=== PATIENT | male | born 1965 | race African-American/Black ===

== ENCOUNTER 2018-05-23 13:12 | Emergency (ER) | payer BC, OTHER ==
[~2018-05-23] VITALS: Ht 175.3 cm; Wt 127.0 kg
[2018-05-23] MEDS ORDERED: LIDOCAINE/EPI/TETRACAINE TOPICAL GEL 3 ML. TP ONE (15:00)
[2018-05-23] MEDS ORDERED: DIPHTH,PERTUSS(ACELL),TET TOX 0.5 ML DISP.SYRIN. VAX IM ONE (15:00)
[2018-05-23] MEDS ORDERED: LIDOCAINE WITH 8.4% SOD BICARB 3 ML DISP.SYRIN. INJ ONE (15:00)
[2018-05-23 15:01] VITALS: BP 136/76
[2018-05-23] MEDS ORDERED: HYDR-3164 PO (15:17)
--- NOTE | 2018-05-23 15:18 | PHYS DOC ---
Past Medical History Past Medical History: Hypertension, Renal Disease Past Surgical History: Other Additional Past Surgical Histo: RENAL STENTS Alcohol Use: None Drug Use: None Adult General Chief Complaint Chief Complaint: LACERATION/AVULSION HPI HPI Patient is a 52 year old male who presents with patient states he was on the driveway today and slipped on some ice. States he fell backward and hit the back of his head. Patient rates his pain a 3 out of 10. Review of Systems Review of Systems Constitutional: Denies fever or chills [] Eyes: Denies change in visual acuity, redness, or eye pain [] HENT: Denies nasal congestion or sore throat [] Respiratory: Denies cough or shortness of breath [] Cardiovascular: No additional information not addressed in HPI [] GI: Denies abdominal pain, nausea, vomiting, bloody stools or diarrhea [] : Denies dysuria or hematuria [] Musculoskeletal: Denies back pain or joint pain [] Integument: Scalp laceration. Denies rash or skin lesions [] Neurologic: Denies headache, focal weakness or sensory changes [] All other systems were reviewed and found to be within normal limits, except as documented in this note. Current Medications Current Medications Current Medications Medications (Trade) Dose Ordered Sig/Jeremiah Start Time Stop Time Status Last Admin Dose Admin Diphtheria/ Tetanus/Acell Pertussis (Boostrix) 0.5 ml ONCE ONCE 05/23/18 15:00 05/23/18 16:07 DC 05/23/18 15:00 0.5 ML Lidocaine/ Epinephrine (Let Topical) 6 ml 1X ONCE 05/23/18 15:00 05/23/18 16:07 DC 05/23/18 15:00 6 ML Lidocaine/Sodium Bicarbonate (Buffered Lidocaine 1%) 9 ml 1X ONCE 05/23/18 15:00 05/23/18 16:07 DC 05/23/18 15:00 9 ML Allergies Allergies Allergies Coded Allergies Type Severity Reaction Last Updated Verified cortisone Allergy Unknown 05/23/18 Yes Physical Exam Physical Exam Constitutional: Well developed, well nourished, no acute distress, non-toxic appearance. [] HENT: Normocephalic, atraumatic, bilateral external ears normal, oropharynx moist, no oral exudates, nose normal. [] Eyes: PERRLA, EOMI, conjunctiva normal, no discharge. [] Neck: Normal range of motion, no tenderness, supple, no stridor. [] Cardiovascular:Heart rate regular rhythm, no murmur [] Lungs & Thorax: Bilateral breath sounds clear to auscultation [] Abdomen: Bowel sounds normal, soft, no tenderness, no masses, no pulsatile masses. [] Skin: Scalp laceration. Warm, dry, no erythema, no rash. [] Back: No tenderness, no CVA tenderness. [] Extremities: No tenderness, no cyanosis, no clubbing, ROM intact, no edema. [] Neurologic: Alert and oriented X 3, normal motor function, normal sensory function, no focal deficits noted. [] Psychologic: Affect normal, judgement normal, mood normal. [] Current Patient Data Vital Signs Vital Signs Date Time Temp Pulse Resp B/P (MAP) Pulse Ox O2 Delivery O2 Flow Rate FiO2 05/23/18 15:01 97.3 79 20 136/76 (96) 98 Room Air 97.3 EKG EKG [] Radiology/Procedures Radiology/Procedures [] Impressions: [facility] [address] [place] [address] IMAGING REPORT Signed PATIENT: CAROLYNE BOYLE ACCOUNT: [id number] : 1965 LOCATION: ER AGE: 52 SEX: M EXAM STATUS: REG ER ORD. PHYSICIAN: DAGOBERTO MCCAULEY APRN REASON: fall PROCEDURE: CT HEAD AND MAXILLOFACIAL WO CT HEAD AND MAXILLOFACIAL WO, CT CERVICAL SPINE WO CONTRAST dated 05/23/2018 4:04 PM Indication: Pain after injury. PainSLIPPED ON ICE, LACERATION TO POSTERIOR HEAD, recent fall Comparison: No comparison is available. Technique: Contiguous axial imaging the head was performed from skull base to vertex. In addition, axial imaging of the maxillofacial bones and cervical spine acquired with thin cut coronal and sagittal reconstruction. One or more of the following individualized dose reduction techniques were utilized for this examination: 1. Automated exposure control 2. Adjustment of the mA and/or kV according to patient size 3. Use of iterative reconstruction technique Findings: Ventricles and sulci are within normal limits for age. No midline shift or mass effect. Brain parenchyma is of normal attenuation. No hemorrhage or extra-axial collection. Posterior fossa and brainstem unremarkable. There is focal scalp soft tissue swelling and scalp laceration posteriorly near the vertex. Underlying calvarium is intact. Paranasal sinuses and mastoid air cells are clear. Images of the maxillofacial bones show no evidence of displaced facial fracture. Orbital jorgensen and maxillary jorgensen are intact. Zygomatic arches are intact. The mandible is intact. No evidence of nasal bone fracture. Posterior medial units and infundibula are patent. Bilateral mastoid air cells are clear. No significant soft tissue abnormality. Images of the cervical spine were acquired skull base to T1. Sagittal alignment is anatomic. Vertebral body heights are maintained. No prevertebral soft tissue swelling. Posterior elements are intact. No apparent fracture. Mild hypertrophic change of the superior and inferior endplates throughout. Multilevel uncovertebral spurring and facet arthropathy. There is resultant severe right foraminal stenosis at the C5-C6 level with mild to moderate foraminal narrowing at C3-C4 and C4-C5 on the right. No apparent central canal compromise. IMPRESSION HEAD: 1. No evidence of acute intracranial hemorrhage or mass. 2. Prominent posterior scalp hematoma/laceration near the vertex with no evidence of underlying fracture. IMPRESSION MAXILLOFACIAL: 1. No evidence of displaced facial fracture. IMPRESSION CERVICAL SPINE: 1. No evidence of fracture or malalignment. 2. Mild to moderate multilevel spondylosis. Electronically signed by: Krish Fagan MD (05/23/2018 4:28 PM) [facility] [place] DICTATED and SIGNED BY: KRISH FAGAN MD DATE: 05/23/18 1623 Course & Med Decision Making Course & Med Decision Making Patient is a 52 year old male who presents with patient states he was on the driveway today and slipped on some ice. States he fell backward and hit the back of his head. Patient rates his pain a 3 out of 10. Patient denies LOC, nausea, vomiting, headache but states his right jaw is hurting. This happened at 12 PM today. Bleeding is controlled. Patient has a 5 cm laceration to the back of his scalp. Patient has range of motion can open and close his jaw and speak in full clear sentences. Her and oriented. Patient Has no bony tenderness to his face, C-spine, thoracic spine, lumbar spine. He has full range of motion of his neck. PERRLA. No focal weaknesses. Stable and ambulatory with a steady gait. CT scans show no acute findings. Patient is given a Boostrix shot. Patient is to follow-up here in 7-10 days for staple removal. Patient should follow up sooner for any signs of infection. Patient is given prescription for pain medications. Laceration Repair by me: Anesthesia: 1% lidocaine locally Location: Back of head scalp Tendon/Joint/Nerves: No injury Foreign body: None detected after copious irrigation and exploration Technique: 8 Simple Interrupted hanna Complexity: No subcutaneous sutures/mucosal repair/edge excision Post Closure Length: 5 cm Patient's bleeding was easily controlled in the department and there is no indication of anemia. No evidence of compartment syndrome, neurologic injury, vascular injury, open joint, tendon laceration, or foreign body. Patient is appropriate for outpatient follow up. 48 hour wound check. Scar minimization instructions given. Dragon Disclaimer Dragon Disclaimer This electronic medical record was generated, in whole or in part, using a voice recognition dictation system. Departure Departure Impression: Primary Impression: Laceration Additional Impression: Fall Disposition: 01 HOME, SELF-CARE Condition: STABLE Referrals: RADHA HOWARD DO (PCP) Patient Instructions: Laceration Care, Adult Additional Instructions: Keep laceration clean and dry. Follow up with Primary care or here in the ED in 10 days for staple removal. Return for vomiting, dizziness, intense head pain, loss of consciousness, visual changes. Scripts Orphenadrine Citrate (ORPHENADRINE CITRATE) 100 Mg Tablet.er 1 TAB PO BID, #20 TAB Prov: DAGOBERTO MCCAULEY APRN 05/23/18 Ibuprofen (IBUPROFEN) 600 Mg Tablet 600 MG PO PRN Q6HRS PRN for INFLAMMATION, #20 TAB Prov: DAGOBERTO MCCAULEY APRN 05/23/18 Hydrocodone/Apap 5-325 (NORCO 5-325 TABLET) 1 Each Tablet 1 TAB PO PRN Q6HRS PRN for PAIN, #10 TAB 0 Refills Prov: DAGOBERTO MCCAULEY APRN 05/23/18 Problem Qualifiers Additional Impression: Fall Encounter type: initial encounter Qualified Codes: W19.XXXA - Unspecified fall, initial encounter DAGOBERTO MCCAULEY APRN May 23, 2018 15:18
--- NOTE | 2018-05-23 16:33 | RAD ---
CT HEAD AND MAXILLOFACIAL WO, CT CERVICAL SPINE WO CONTRAST dated 05/23/2018 4:04 PM Indication: Pain after injury. PainSLIPPED ON ICE, LACERATION TO POSTERIOR HEAD, recent fall Comparison: No comparison is available. Technique: Contiguous axial imaging the head was performed from skull base to vertex. In addition, axial imaging of the maxillofacial bones and cervical spine acquired with thin cut coronal and sagittal reconstruction. One or more of the following individualized dose reduction techniques were utilized for this examination: 1. Automated exposure control 2. Adjustment of the mA and/or kV according to patient size 3. Use of iterative reconstruction technique Findings: Ventricles and sulci are within normal limits for age. No midline shift or mass effect. Brain parenchyma is of normal attenuation. No hemorrhage or extra-axial collection. Posterior fossa and brainstem unremarkable. There is focal scalp soft tissue swelling and scalp laceration posteriorly near the vertex. Underlying calvarium is intact. Paranasal sinuses and mastoid air cells are clear. Images of the maxillofacial bones show no evidence of displaced facial fracture. Orbital jorgensen and maxillary jorgensen are intact. Zygomatic arches are intact. The mandible is intact. No evidence of nasal bone fracture. Posterior medial units and infundibula are patent. Bilateral mastoid air cells are clear. No significant soft tissue abnormality. Images of the cervical spine were acquired skull base to T1. Sagittal alignment is anatomic. Vertebral body heights are maintained. No prevertebral soft tissue swelling. Posterior elements are intact. No apparent fracture. Mild hypertrophic change of the superior and inferior endplates throughout. Multilevel uncovertebral spurring and facet arthropathy. There is resultant severe right foraminal stenosis at the C5-C6 level with mild to moderate foraminal narrowing at C3-C4 and C4-C5 on the right. No apparent central canal compromise. IMPRESSION HEAD: 1. No evidence of acute intracranial hemorrhage or mass. 2. Prominent posterior scalp hematoma/laceration near the vertex with no evidence of underlying fracture. IMPRESSION MAXILLOFACIAL: 1. No evidence of displaced facial fracture. IMPRESSION CERVICAL SPINE: 1. No evidence of fracture or malalignment. 2. Mild to moderate multilevel spondylosis. Electronically signed by: Krish Fagan MD (05/23/2018 4:28 PM) [facility] [place]
[2018-05-23] MEDS ORDERED: IBUP-1007 PO (17:11)
[2018-05-23] MEDS ORDERED: ORPH100T PO (17:11)
== END 2018-05-23 17:18 | disposition home or self-care (01) ==
LOC: ER 13:12
DX: S01.01XA Laceration without foreign body of scalp, initial encounter (principal); I10 Essential (primary) hypertension; Z88.8 Allergy status to other drugs, medicaments and biological substances; W00.0XXA Fall on same level due to ice and snow, initial encounter; Y93.89 Activity, other specified; Y92.89 Other specified places as the place of occurrence of the external cause; Y99.8 Other external cause status
CPT/HCPCS: 12002; 70450; 70486; 72125; 90471; 90715; 99284

== ENCOUNTER 2018-06-02 11:29 | Emergency (ER) | payer BC ==
[~2018-06-02] VITALS: Ht 177.8 cm; Wt 129.3 kg
[~2018-06-02 11:29] MED LIST: HYDR-3164 PO; IBUP-1007 PO; ORPH100T PO
[2018-06-02 11:46] VITALS: BP 136/75
[2018-06-02] MEDS ORDERED: LIDOCAINE 1% PF 2 ML VIAL. INJ ONE (12:00)
--- NOTE | 2018-06-02 12:18 | PHYS DOC ---
Past Medical History Past Medical History: Hypertension, Kidney Stone Past Surgical History: Other Additional Past Surgical Histo: RENAL STENTS,CYSTOSCOPY Alcohol Use: None Drug Use: None Adult General Chief Complaint Chief Complaint: SUTURE/STAPLE REMOVAL HPI HPI Patient is a 52 year old [f__sex] who presents with [] Review of Systems Review of Systems Constitutional: Denies fever or chills [] Eyes: Denies change in visual acuity, redness, or eye pain [] HENT: Denies nasal congestion or sore throat [] Respiratory: Denies cough or shortness of breath [] Cardiovascular: No additional information not addressed in HPI [] GI: Denies abdominal pain, nausea, vomiting, bloody stools or diarrhea [] : Denies dysuria or hematuria [] Musculoskeletal: Denies back pain or joint pain [] Integument: Denies rash or skin lesions [] Neurologic: Denies headache, focal weakness or sensory changes [] Endocrine: Denies polyuria or polydipsia [] All other systems were reviewed and found to be within normal limits, except as documented in this note. Current Medications Current Medications Current Medications Medications (Trade) Dose Ordered Sig/Jeremiah Start Time Stop Time Status Last Admin Dose Admin Lidocaine HCl (Xylocaine-Mpf 1% 2ml Vial) 4 ml 1X ONCE 06/02/18 12:00 06/02/18 12:01 DC Allergies Allergies Allergies Coded Allergies Type Severity Reaction Last Updated Verified cortisone Allergy Unknown 05/23/18 Yes Physical Exam Physical Exam Constitutional: Well developed, well nourished, no acute distress, non-toxic appearance. [] HENT: Normocephalic, atraumatic, bilateral external ears normal, oropharynx moist, no oral exudates, nose normal. [] Eyes: PERRLA, EOMI, conjunctiva normal, no discharge. [] Neck: Normal range of motion, no tenderness, supple, no stridor. [] Cardiovascular:Heart rate regular rhythm, no murmur [] Lungs & Thorax: Bilateral breath sounds clear to auscultation [] Abdomen: Bowel sounds normal, soft, no tenderness, no masses, no pulsatile masses. [] Skin: Warm, dry, no erythema, no rash. [] Back: No tenderness, no CVA tenderness. [] Extremities: No tenderness, no cyanosis, no clubbing, ROM intact, no edema. [] Neurologic: Alert and oriented X 3, normal motor function, normal sensory function, no focal deficits noted. [] Psychologic: Affect normal, judgement normal, mood normal. [] Current Patient Data Vital Signs Vital Signs Date Time Temp Pulse Resp B/P (MAP) Pulse Ox O2 Delivery O2 Flow Rate FiO2 06/02/18 11:46 98.0 76 20 136/75 (95) 97 Room Air 98.0 EKG EKG [] Radiology/Procedures Radiology/Procedures [] Course & Med Decision Making Course & Med Decision Making Pertinent Labs and Imaging studies reviewed. (See chart for details) [] Dragon Disclaimer Dragon Disclaimer This electronic medical record was generated, in whole or in part, using a voice recognition dictation system. Departure Departure Impression: Primary Impression: Encounter for removal of hanna Disposition: 01 HOME, SELF-CARE Condition: STABLE Referrals: RADHA HOWARD DO (PCP) Patient Instructions: Staple Removal, Care After Additional Instructions: Tylenol or ibuprofen as needed for pain. Follow the wound care instructions provided. Follow-up with your primary care doctor as needed, return to the ER for symptoms worsen. LASHON RUSSO APRN Jun 02, 2018 12:18
== END 2018-06-02 12:45 | disposition home or self-care (01) ==
LOC: ER 11:29
DX: S41.111D Laceration without foreign body of right upper arm, subsequent encounter (principal); I10 Essential (primary) hypertension; Z87.442 Personal history of urinary calculi; Z88.8 Allergy status to other drugs, medicaments and biological substances; X58.XXXD Exposure to other specified factors, subsequent encounter
CPT/HCPCS: 99284

== ENCOUNTER 2019-03-01 11:23 | Inpatient (IN) | payer BC ==
[~2019-03-01] VITALS: Ht 175.3 cm; Wt 134.0 kg
--- NOTE | 2019-03-01 12:42 | PHYS DOC ---
Past Medical History Past Medical History: Arthritis, Hypertension, Kidney Stone Past Surgical History: Other Additional Past Surgical Histo: RENAL STENTS,CYSTOSCOPY Alcohol Use: None Drug Use: None Adult General Chief Complaint Chief Complaint: OTHER COMPLAINTS HPI HPI Patient is a 53 year old male who presents with back pain that radiates down his left leg had been ongoing for month, and then he went to the chiropractor this past Friday and physical therapy on Friday and since that time he says he's been having bilateral sensation changes below his waist. He states that he has sensation changes around his private area. He denies any pain at this time. However he says he stands up he has severe pain. He says he can feel stuff below the waist however does feels like he is at the dentist and has been numbed. Denies any previous back surgeries. His been taking anti-inflammatories and Flexeril at home. He states that he was trying to have sexual intercourse last night was unable to get an erection due to the sensory changes. Review of Systems Review of Systems Constitutional: Denies fever or chills [] Eyes: Denies change in visual acuity, redness, or eye pain [] HENT: Denies nasal congestion or sore throat [] Respiratory: Denies cough or shortness of breath [] Cardiovascular: No additional information not addressed in HPI [] GI: Denies abdominal pain, nausea, vomiting, bloody stools or diarrhea [] : Denies dysuria or hematuria [] Musculoskeletal: Denies back pain or joint pain [] Integument: Denies rash or skin lesions [] Neurologic: Denies headache, Reports sensory changes bilaterally below the waist. Endocrine: Denies polyuria or polydipsia [] Complete systems were reviewed and found to be within normal limits, except as documented in this note. Current Medications Current Medications Current Medications Medications (Trade) Dose Ordered Sig/Jeremiah Start Time Stop Time Status Last Admin Dose Admin Gadoterate Meglumine (Dotarem) 26.8 ml 1X ONCE 03/01/19 15:45 03/01/19 15:46 DC 03/01/19 15:45 26.8 ML Allergies Allergies Allergies Coded Allergies Type Severity Reaction Last Updated Verified cortisone Allergy Unknown 05/23/18 Yes Physical Exam Physical Exam Constitutional: Well developed, well nourished, no acute distress, non-toxic appearance. [] HENT: Normocephalic, atraumatic, bilateral external ears normal, oropharynx moist, no oral exudates, nose normal. [] Eyes: PERRLA, EOMI, conjunctiva normal, no discharge. [] Neck: Normal range of motion, no tenderness, supple, no stridor. [] Cardiovascular:Heart rate regular rhythm, no murmur [] Lungs & Thorax: Bilateral breath sounds clear to auscultation [] Abdomen: Bowel sounds normal, soft, no tenderness, no masses, no pulsatile masses. [] Skin: Warm, dry, no erythema, no rash. [] Back: Spinal tenderness thoracic and lumbar. Extremities: No tenderness, no cyanosis, no clubbing, ROM intact, no edema. [] Neurologic: Alert and oriented X 3, normal motor function, reduced sensation bilateral legs. -babinski reflex, can dorsal and plantar flex, has reduced rectal tone, Has saddle anesthesia. Psychologic: Affect normal, judgement normal, mood normal. [] Current Patient Data Vital Signs Vital Signs Date Time Temp Pulse Resp B/P (MAP) Pulse Ox O2 Delivery O2 Flow Rate FiO2 03/01/19 15:05 72 18 116/70 (85) 95 Room Air 03/01/19 11:53 98.7 98.7 Lab Values Laboratory Tests Test 03/01/19 13:24 03/01/19 14:39 White Blood Count 8.6 x10^3/uL (4.0-11.0) Red Blood Count 4.93 x10^6/uL (4.30-5.70) Hemoglobin 13.7 g/dL (13.0-17.5) Hematocrit 41.8 % (39.0-53.0) Mean Corpuscular Volume 85 fL (79-100) Mean Corpuscular Hemoglobin 28 pg (25-35) Mean Corpuscular Hemoglobin Concent 33 g/dL (31-37) Red Cell Distribution Width 14.1 % (11.5-14.5) Platelet Count 317 x10^3/uL (140-400) Neutrophils (%) (Auto) 69 % (31-73) Lymphocytes (%) (Auto) 22 % (24-48) L Monocytes (%) (Auto) 7 % (0-9) Eosinophils (%) (Auto) 1 % (0-3) Basophils (%) (Auto) 1 % (0-3) Neutrophils # (Auto) 6.0 x10^3/uL (1.8-7.7) Lymphocytes # (Auto) 1.9 x10^3/uL (1.0-4.8) Monocytes # (Auto) 0.6 x10^3/uL (0.0-1.1) Eosinophils # (Auto) 0.1 x10^3/uL (0.0-0.7) Basophils # (Auto) 0.1 x10^3/uL (0.0-0.2) Erythrocyte Sedimentation Rate 29 (0-15) H Sodium Level 142 mmol/L (136-145) Potassium Level 4.6 mmol/L (3.5-5.1) Chloride Level 107 mmol/L (98-107) Carbon Dioxide Level 24 mmol/L (21-32) Anion Gap 11 (6-14) Blood Urea Nitrogen 30 mg/dL (8-26) H Creatinine 1.5 mg/dL (0.7-1.3) H Estimated GFR (Cockcroft-Gault) 59.7 BUN/Creatinine Ratio 20 (6-20) Glucose Level 93 mg/dL (70-99) Calcium Level 9.4 mg/dL (8.5-10.1) Total Bilirubin 0.4 mg/dL (0.2-1.0) Aspartate Amino Transferase (AST) 36 U/L (15-37) Alanine Aminotransferase (ALT) 43 U/L (16-63) Alkaline Phosphatase 76 U/L (46-116) Total Protein 8.1 g/dL (6.4-8.2) Albumin 3.7 g/dL (3.4-5.0) Albumin/Globulin Ratio 0.8 (1.0-1.7) L Urine Color Yellow Urine Clarity Clear Urine pH 5.5 Urine Specific [place] 1.025 Urine Protein Negative mg/dL (NEG-TRACE) Urine Glucose (UA) Negative mg/dL (NEG) Urine Ketones (Stick) Negative mg/dL (NEG) Urine Blood Negative (NEG) Urine Nitrite Negative (NEG) Urine Bilirubin Negative (NEG) Urine Urobilinogen Dipstick 0.2 mg/dL (0.2 mg/dL) Urine Leukocyte Esterase Small (NEG) Urine RBC 0 /HPF (0-2) Urine WBC 5-10 /HPF (0-4) Urine Squamous Epithelial Cells Occ /LPF Urine Bacteria 0 /HPF (0-FEW) Urine Mucus Mod /LPF Laboratory Tests 03/01/19 13:24 Laboratory Tests 03/01/19 13:24 EKG EKG [] Radiology/Procedures Radiology/Procedures [] Course & Med Decision Making Course & Med Decision Making Pertinent Labs and Imaging studies reviewed. (See chart for details) Discussed with Dr. Mcdonald. He suggest to go ahead and get emergent MRI to rule out Cauda Equina. Will also get labs. Discussed with Shanita with Neurosurgery who agrees with the emergent MRI. Labs are unremarkable. Discussed with Dr. Matthews who agrees to admission. MRI is pending will consult neurosurgery. Dragon Disclaimer Dragon Disclaimer This electronic medical record was generated, in whole or in part, using a voice recognition dictation system. Departure Departure Impression: Primary Impression: Back pain Additional Impressions: Paresthesia of both lower extremities Paresthesia of buttock Disposition: ADMITTED INPATIENT Admitting Physician: KENDRA Condition: STABLE Referrals: RADHA HOWARD DO (PCP) Problem Qualifiers Primary Impression: Back pain Chronicity: acute Back pain laterality: left Sciatica presence: with sciatica Sciatica laterality: bilateral sciatica CIELO CARTER APRN Mar 01, 2019 12:42
[2019-03-01 13:39] LABS: BASO # 0.1 x10^3/uL (0.0-0.2); BASO % 1 % (0-3); EOS # 0.1 x10^3/uL (0.0-0.7); EOS % 1 % (0-3); HEMATOCRIT 41.8 % (39.0-53.0); HEMOGLOBIN 13.7 g/dL (13.0-17.5); LYMPH # 1.9 x10^3/uL (1.0-4.8); LYMPH % 22 % (24-48); MEAN CORPUSCULAR HEMOGLOBIN 28 pg (25-35); MEAN CORPUSCULAR HGB CONC 33 g/dL (31-37); MEAN CORPUSCULAR VOLUME 85 fL (79-100); MONO # 0.6 x10^3/uL (0.0-1.1); MONO % 7 % (0-9); NEUT % 69 % (31-73); PLATELET COUNT 317 x10^3/uL (140-400); RED BLOOD COUNT 4.93 x10^6/uL (4.30-5.70); RED CELL DISTRIBUTION WIDTH 14.1 % (11.5-14.5); WHITE BLOOD COUNT 8.6 x10^3/uL (4.0-11.0)
[2019-03-01 13:48] LABS: CALCIUM 9.4 mg/dL (8.5-10.1); CREATININE 1.5 mg/dL (0.7-1.3); GFR 59.7; POTASSIUM 4.6 mmol/L (3.5-5.1)
[2019-03-01 13:54] LABS: ALBUMIN 3.7 g/dL (3.4-5.0); ALBUMIN/GLOBULIN RATIO 0.8 (1.0-1.7); TOTAL BILIRUBIN 0.4 mg/dL (0.2-1.0); TOTAL PROTEIN 8.1 g/dL (6.4-8.2)
[2019-03-01 14:46] LABS: BILIRUBIN,URINE NEGATIVE (NEG); CLARITY,URINE CLEAR; COLOR,URINE YELLOW; NITRITE,URINE NEGATIVE (NEG); PH,URINE 5.5; PROTEIN,URINE NEGATIVE (NEG-TRACE); UROBILINOGEN,URINE 0.2 mg/dL (0.2 mg/dL)
[2019-03-01 14:58] LABS: BACTERIA,URINE 0 /HPF (0-FEW); RBC,URINE 0 /HPF (0-2); SQUAMOUS EPITHELIAL CELL,UR OCC /LPF
[2019-03-01] MEDS ORDERED: GADOTERATE 7.5 MMOL/15ML VIAL. IVP ONE (15:45)
[2019-03-01] MEDS ORDERED: ONDANSETRON PF 4 MG/2 ML VIAL. IV PRN (17:15)
[2019-03-01] MEDS ORDERED: MORPHINE SULFATE 4 MG/ML VIAL. IV PRN (17:15)
--- NOTE | 2019-03-01 17:40 | RAD ---
MRI of the thoracic and lumbar spine without and with contrast 03/01/2019 CLINICAL HISTORY: Mid/lower back pain. Decreased rectal tone. Bilateral sensation changes. TECHNIQUE: Unenhanced T1-weighted and T2-weighted sagittal and axial and inversion recovery sagittal images of the thoracic and lumbar spine were obtained. After the intravenous administration of 27 cc of DOTAREM, enhanced T1-weighted sagittal and axial images of the thoracic and lumbar spine were obtained. FINDINGS: Some of the images are degraded by patient motion. Minimal S-shaped curvature of the thoracolumbar spine is seen. Degenerative signal changes are seen involving the disks of the mid and lower thoracic spine along with the L4-5 and L5-S1 discs. Degenerative signal changes are seen within the marrow surrounding these discs. The thoracic spinal cord is normal morphology, position, and signal characteristics. The conus medullaris is normal morphology, position, and signal characteristics. No area of abnormal contrast enhancement is seen. A 2.2 cm rounded high signal intensity lesion is seen involving the superior/midpole of the left kidney on the T2-weighted images. This likely represents a cyst. Degenerative changes are seen involving the thoracic disc spaces consisting of minimal generalized disc bulges and degenerative changes involving the facet joints. These findings do not result in significant central spinal canal or neural foraminal stenosis. The changes of degenerative disc disease are seen involving the mid and lower lumbar disc spaces. These consist of mild to moderate generalized disc bulges, degenerative changes involving the facet joints, small to moderate-sized facet joint effusions and mild to moderate ligamentum flavum hypertrophy. These findings result in mild to moderate central spinal canal stenosis at L4-5 and mild central spinal canal stenosis at L5-S1. Mild to moderate right neural foraminal stenosis is seen at L5-S1. IMPRESSION: 1. No area of signal abnormality, contrast enhancement or impingement is seen involving the thoracic spinal cord. 2. Degenerative changes are seen throughout the thoracic spine. These findings do not result in significant central spinal canal or neural foraminal stenosis. 3. The changes of degenerative disc disease are seen involving the mid and lower lumbar spine. These findings result in mild to moderate central spinal canal stenosis at L4-5 and mild central spinal canal stenosis at L5-S1. Mild to moderate right neural foraminal stenosis is seen at L5-S1. Electronically signed by: Dino Landon MD (03/01/2019 5:37 PM) [id number]
[2019-03-01 18:30] VITALS: BP 124/79
[2019-03-01] MEDS ORDERED: INDO75CA3 PO (19:54)
[2019-03-01] MEDS ORDERED: ALLO300T PO (19:54)
[2019-03-01] MEDS ORDERED: METO-269 PO (19:54)
[2019-03-01] MEDS ORDERED: LISI40TA2 PO (19:54)
[2019-03-01] MEDS ORDERED: METF500T11 PO (19:54)
[2019-03-01] MEDS ORDERED: LOSA100T14 PO (19:54)
[2019-03-01] MEDS ORDERED: POTA10TA17 PO (19:54)
[2019-03-01] MEDS ORDERED: HYDROcodone/APAP 5/325MG 1 TAB TABLET PO PRN (20:30)
[2019-03-01] MEDS ORDERED: IBUPROFEN 200 MG TABLET. PO PRN (20:45)
[2019-03-01] MEDS: CYCLOBENZAPRINE 10 MG TABLET. PO SCH (21:45)
[2019-03-01] MEDS: POTASSIUM CITRATE 10 MEQ TABLET.ER PO SCH (21:46)
[2019-03-01] MEDS: INDOMETHACIN 25 MG CAPSULE. PO SCH (21:48)
--- NOTE | 2019-03-01 22:33 | PDOC1 ---
History and Physical Date of Admission Date of Admission DATE: 03/01/19 TIME: 22:27 Source Source: Chart review, Patient History of Present Illness History of Present Illness Mr. Cuellar is a 53 year old male admit with leg and groin numbness that is new over days, He has had a lot of recent back pain, sciatica of the left, that radiates down his left leg had been ongoing for month, and then he went to the chiropractor this past Friday and physical therapy on Friday. In the past 2 days, he has now numbness started below the waist, he feels is started in the right foot and moved up and the left hip and moved down. he groin is now numb today. some back pain and left hip pain, mild at rest and severe when trying to stand. . Denies any previous back surgeries. His been taking anti-inflammatories and Flexeril at home. he works with [employer], Past Medical History Cardiovascular: HTN Social History Smoke: No ALCOHOL: none Current Problem List Problem List Problems Medical Problems: (1) Back pain Status: Acute (2) Paresthesia of both lower extremities Status: Acute (3) Paresthesia of buttock Status: Acute Current Medications Current Medications Current Medications Gadoterate Meglumine (Dotarem) 26.8 ml 1X ONCE IVP Last administered on 03/01/19at 15:45; Start 03/01/19 at 15:45; Stop 03/01/19 at 15:46; Status DC Ondansetron HCl (Zofran) 4 mg PRN Q8HRS PRN IV NAUSEA/VOMITING; Start 03/01/19 at 17:15; Stop 03/02/19 at 17:14 Morphine Sulfate (Morphine Sulfate) 4 mg PRN Q2HR PRN IV PAIN; Start 03/01/19 at 17:15; Stop 03/02/19 at 17:14 Allopurinol (Zyloprim) 300 mg DAILY PO ; Start 03/02/19 at 09:00 Acetaminophen/ Hydrocodone Bitart (Lortab 5/325) 1 tab PRN Q6HRS PRN PO PAIN; Start 03/01/19 at 20:30 Potassium Citrate (Urocit-K) 10 meq BID PO Last administered on 03/01/19at 21:46; Start 03/01/19 at 21:00 Ibuprofen (Motrin) 600 mg PRN Q6HRS PRN PO INFLAMMATION; Start 03/01/19 at 20:45 Indomethacin (Indocin) 75 mg BIDWMEALS PO Last administered on 03/01/19at 21:48; Start 03/01/19 at 21:00 Lisinopril (Prinivil) 40 mg DAILY PO ; Start 03/02/19 at 09:00 Losartan Potassium (Cozaar) 100 mg DAILY PO ; Start 03/02/19 at 09:00 Metoprolol Succinate (Toprol Xl) 50 mg DAILY PO ; Start 03/02/19 at 09:00 Cyclobenzaprine HCl (Flexeril) 10 mg BID PO Last administered on 03/01/19at 21:45; Start 03/01/19 at 21:00 Active Scripts Active Orphenadrine Citrate 100 Mg Tablet.er 1 Tab PO BID Ibuprofen 600 Mg Tablet 600 Mg PO PRN Q6HRS PRN [place] 5-325 Tablet (Acetaminophen/Hydrocodone Bitart) 1 Each Tablet 1 Tab PO PRN Q6HRS PRN Reported Toprol Xl (Metoprolol Succinate) 50 Mg Tab.er.24h 50 Mg PO DAILY Losartan Potassium 100 Mg Tablet 100 Mg PO DAILY Indomethacin 75 Mg Capsule.er 75 Mg PO BID Allopurinol 300 Mg Tablet 300 Mg PO DAILY Lisinopril 40 Mg Tablet 40 Mg PO DAILY Metformin Hcl Er (Metformin Hcl) 500 Mg Tab.er.24h 500 Mg PO BIDAC Potassium Citrate 10 Meq Tablet.er 10 Meq PO BID Allergies Allergies: Coded Allergies: cortisone (Verified Allergy, Unknown, 05/23/18) Physical Exam General: Alert, Oriented X3, Cooperative, No acute distress HEENT: Atraumatic, PERRLA, EOMI, Mucous membr. moist/pink Lungs: Clear to auscultation, Normal air movement Heart: S1S2, RRR, no gallops, no murmurs Abdomen: Normal bowel sounds, Soft Extremities: No clubbing, No edema, Normal pulses Skin: No rashes, No breakdown Neuro: Normal tone, Sensation intact, Cranial nerves 3-12 NL, Other Vitals Vitals Vital Signs Date Time Temp Pulse Resp B/P (MAP) Pulse Ox O2 Delivery O2 Flow Rate FiO2 03/01/19 18:30 97.3 82 20 124/79 (94) 93 Room Air 97.3 Labs Labs Laboratory Tests Test 03/01/19 13:24 03/01/19 14:39 White Blood Count 8.6 x10^3/uL (4.0-11.0) Red Blood Count 4.93 x10^6/uL (4.30-5.70) Hemoglobin 13.7 g/dL (13.0-17.5) Hematocrit 41.8 % (39.0-53.0) Mean Corpuscular Volume 85 fL (79-100) Mean Corpuscular Hemoglobin 28 pg (25-35) Mean Corpuscular Hemoglobin Concent 33 g/dL (31-37) Red Cell Distribution Width 14.1 % (11.5-14.5) Platelet Count 317 x10^3/uL (140-400) Neutrophils (%) (Auto) 69 % (31-73) Lymphocytes (%) (Auto) 22 % (24-48) Monocytes (%) (Auto) 7 % (0-9) Eosinophils (%) (Auto) 1 % (0-3) Basophils (%) (Auto) 1 % (0-3) Neutrophils # (Auto) 6.0 x10^3/uL (1.8-7.7) Lymphocytes # (Auto) 1.9 x10^3/uL (1.0-4.8) Monocytes # (Auto) 0.6 x10^3/uL (0.0-1.1) Eosinophils # (Auto) 0.1 x10^3/uL (0.0-0.7) Basophils # (Auto) 0.1 x10^3/uL (0.0-0.2) Erythrocyte Sedimentation Rate 29 (0-15) Sodium Level 142 mmol/L (136-145) Potassium Level 4.6 mmol/L (3.5-5.1) Chloride Level 107 mmol/L (98-107) Carbon Dioxide Level 24 mmol/L (21-32) Anion Gap 11 (6-14) Blood Urea Nitrogen 30 mg/dL (8-26) Creatinine 1.5 mg/dL (0.7-1.3) Estimated GFR (Cockcroft-Gault) 59.7 BUN/Creatinine Ratio 20 (6-20) Glucose Level 93 mg/dL (70-99) Calcium Level 9.4 mg/dL (8.5-10.1) Total Bilirubin 0.4 mg/dL (0.2-1.0) Aspartate Amino Transf (AST/SGOT) 36 U/L (15-37) Alanine Aminotransferase (ALT/SGPT) 43 U/L (16-63) Alkaline Phosphatase 76 U/L (46-116) Total Protein 8.1 g/dL (6.4-8.2) Albumin 3.7 g/dL (3.4-5.0) Albumin/Globulin Ratio 0.8 (1.0-1.7) Urine Color Yellow Urine Clarity Clear Urine pH 5.5 Urine Specific [place] 1.025 Urine Protein Negative mg/dL (NEG-TRACE) Urine Glucose (UA) Negative mg/dL (NEG) Urine Ketones (Stick) Negative mg/dL (NEG) Urine Blood Negative (NEG) Urine Nitrite Negative (NEG) Urine Bilirubin Negative (NEG) Urine Urobilinogen Dipstick 0.2 mg/dL (0.2 mg/dL) Urine Leukocyte Esterase Small (NEG) Urine RBC 0 /HPF (0-2) Urine WBC 5-10 /HPF (0-4) Urine Squamous Epithelial Cells Occ /LPF Urine Bacteria 0 /HPF (0-FEW) Urine Mucus Mod /LPF Laboratory Tests Test 03/01/19 13:24 03/01/19 14:39 White Blood Count 8.6 x10^3/uL (4.0-11.0) Red Blood Count 4.93 x10^6/uL (4.30-5.70) Hemoglobin 13.7 g/dL (13.0-17.5) Hematocrit 41.8 % (39.0-53.0) Mean Corpuscular Volume 85 fL (79-100) Mean Corpuscular Hemoglobin 28 pg (25-35) Mean Corpuscular Hemoglobin Concent 33 g/dL (31-37) Red Cell Distribution Width 14.1 % (11.5-14.5) Platelet Count 317 x10^3/uL (140-400) Neutrophils (%) (Auto) 69 % (31-73) Lymphocytes (%) (Auto) 22 % (24-48) Monocytes (%) (Auto) 7 % (0-9) Eosinophils (%) (Auto) 1 % (0-3) Basophils (%) (Auto) 1 % (0-3) Neutrophils # (Auto) 6.0 x10^3/uL (1.8-7.7) Lymphocytes # (Auto) 1.9 x10^3/uL (1.0-4.8) Monocytes # (Auto) 0.6 x10^3/uL (0.0-1.1) Eosinophils # (Auto) 0.1 x10^3/uL (0.0-0.7) Basophils # (Auto) 0.1 x10^3/uL (0.0-0.2) Erythrocyte Sedimentation Rate 29 (0-15) Sodium Level 142 mmol/L (136-145) Potassium Level 4.6 mmol/L (3.5-5.1) Chloride Level 107 mmol/L (98-107) Carbon Dioxide Level 24 mmol/L (21-32) Anion Gap 11 (6-14) Blood Urea Nitrogen 30 mg/dL (8-26) Creatinine 1.5 mg/dL (0.7-1.3) Estimated GFR (Cockcroft-Gault) 59.7 BUN/Creatinine Ratio 20 (6-20) Glucose Level 93 mg/dL (70-99) Calcium Level 9.4 mg/dL (8.5-10.1) Total Bilirubin 0.4 mg/dL (0.2-1.0) Aspartate Amino Transf (AST/SGOT) 36 U/L (15-37) Alanine Aminotransferase (ALT/SGPT) 43 U/L (16-63) Alkaline Phosphatase 76 U/L (46-116) Total Protein 8.1 g/dL (6.4-8.2) Albumin 3.7 g/dL (3.4-5.0) Albumin/Globulin Ratio 0.8 (1.0-1.7) Urine Color Yellow Urine Clarity Clear Urine pH 5.5 Urine Specific [place] 1.025 Urine Protein Negative mg/dL (NEG-TRACE) Urine Glucose (UA) Negative mg/dL (NEG) Urine Ketones (Stick) Negative mg/dL (NEG) Urine Blood Negative (NEG) Urine Nitrite Negative (NEG) Urine Bilirubin Negative (NEG) Urine Urobilinogen Dipstick 0.2 mg/dL (0.2 mg/dL) Urine Leukocyte Esterase Small (NEG) Urine RBC 0 /HPF (0-2) Urine WBC 5-10 /HPF (0-4) Urine Squamous Epithelial Cells Occ /LPF Urine Bacteria 0 /HPF (0-FEW) Urine Mucus Mod /LPF VTE Prophylaxis Ordered VTE Prophylaxis Devices: Yes VTE Pharmacological Prophylaxi: No Assessment/Plan Assessment/Plan back pain sciatica left numbness bilateral legs with new saddle anesthesia, STAT MRI done today, shows some narrowing, none critical, Neurosurg consulted, 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
[2019-03-01 22:45] VITALS: BP 117/76
[2019-03-01] MEDS ORDERED: IV NORMAL SALINE 1000ML BAG 1,000 ML IV ONE (22:45)
[2019-03-01] MEDS: LIDOCAINE (700MG/PATCH) PATCH. TD SCH (22:47)
--- NOTE | 2019-03-02 02:09 | NUR ---
Patient arrived to unit around 1830. and son at bedside. Patient states that he has 5/10 pain in his lower back. Also reports numbness and tingling from waist down. Patient states that he has had two falls in the past week since his feet are numb. VS stable, assessment complete. Bed in low, locked position, will continue to monitor.
[2019-03-02 03:45] VITALS: BP 99/58
[2019-03-02 07:00] VITALS: BP 133/70
[2019-03-02] MEDS: LIDOCAINE (700MG/PATCH) PATCH. TD SCH (09:00)
[2019-03-02] MEDS: CYCLOBENZAPRINE 10 MG TABLET. PO SCH ×2 (09:00→18:00)
[2019-03-02] MEDS ORDERED: methylPREDNISolone 4 MG TABLET. PO SCH ×2 (09:00→12:30)
[2019-03-02] MEDS: INDOMETHACIN 25 MG CAPSULE. PO SCH (09:44)
[2019-03-02] MEDS: LISINOPRIL 20 MG TABLET PO SCH (09:45)
[2019-03-02] MEDS: POTASSIUM CITRATE 10 MEQ TABLET.ER PO SCH ×2 (09:45→20:57)
[2019-03-02] MEDS: LOSARTAN POTASSIUM 50 MG TABLET. PO SCH (09:46)
[2019-03-02] MEDS: ALLOPURINOL 300 MG TABLET. PO SCH (09:46)
[2019-03-02] MEDS: METOPROLOL SUCC 24HR ER 50 MG TAB.ER.24H. PO SCH (09:46)
[2019-03-02 11:00] VITALS: BP 120/86
--- NOTE | 2019-03-02 12:33 | PDOC ---
Provider Note Provider Note Patient seen and examined c/o LE numbness and feelings of weakness with ambulation and some back pain has gained >60 lbs in the last few months exam: neuro intact except subjective decrease in sensation in bilateral lower extremities thoracic and lumbar MRI with degenerative arthritis and moderate epidural lipomatosis neurology following weight loss may be of benefit could dc from my standpoint call with questions ARSH BUSTOS MD Mar 02, 2019 12:33
--- NOTE | 2019-03-02 13:21 | NUR ---
SS following for discharge planning. SS reviewed pt chart. Pt is from home with spouse and is currently on room air. PT recommended home independent. SS will continue to follow for discharge planning.
--- NOTE | 2019-03-02 13:51 | PDOC ---
[employer]GRESS NOTE Chief Complaint Chief Complaint back pain sciatica left numbness bilateral legs with new saddle anesthesia, STAT MRI done today, shows some narrowing, none critical CKD 2-3, History of Present Illness History of Present Illness 03/02/2019 Pt was seen and examined. Pt reports that he is doing well today. Reports he is overflow on the cardiac floor and is here to see neurology. Reports numbness from the midthorax to the feet. Reports that he had a MRI yesterday. Denies any cardiac complaints and denies any cardiac health problems in the past. Vitals/I&O Vitals/I&O: Vital Signs Date Time Temp Pulse Resp B/P (MAP) Pulse Ox O2 Delivery O2 Flow Rate FiO2 03/02/19 11:00 97.5 82 18 120/86 (97) 96 Room Air 97.5 I & O 0 03/01/19 03/01/19 03/02/19 15:00 23:00 07:00 Intake Total 400 ml Output Total 300 ml Balance -300 ml 400 ml Physical Exam General: Alert, Oriented X3, Cooperative, No acute distress Heart: Regular rate Lungs: Clear Abdomen: Normal bowel sounds, Soft Extremities: No clubbing, No edema, Normal pulses Skin: No rashes, No breakdown Labs Labs: Laboratory Tests Test 03/01/19 14:39 03/02/19 11:30 Urine Color Yellow Urine Clarity Clear Urine pH 5.5 Urine Specific [place] 1.025 Urine Protein Negative mg/dL (NEG-TRACE) Urine Glucose (UA) Negative mg/dL (NEG) Urine Ketones (Stick) Negative mg/dL (NEG) Urine Blood Negative (NEG) Urine Nitrite Negative (NEG) Urine Bilirubin Negative (NEG) Urine Urobilinogen Dipstick 0.2 mg/dL (0.2 mg/dL) Urine Leukocyte Esterase Small (NEG) Urine RBC 0 /HPF (0-2) Urine WBC 5-10 /HPF (0-4) Urine Squamous Epithelial Cells Occ /LPF Urine Bacteria 0 /HPF (0-FEW) Urine Mucus Mod /LPF Creatine Kinase 355 U/L (39-308) Vitamin B12 Level 896 pg/mL (247-911) Thyroid Stimulating Hormone (TSH) 2.277 uIU/mL (0.358-3.74) Review of Systems Review of Systems: Denies CP Denies SOB Denies N/V/D Assessment and Plan Assessmemt and Plan Problems Medical Problems: (1) Back pain Status: Acute (2) CKD (chronic kidney disease) Status: Chronic (3) Numbness in both legs Status: Acute (4) Paresthesia of both lower extremities Status: Acute (5) Paresthesia of buttock Status: Acute (6) Sciatica, left side Status: Acute Lumbar MRI (03/01/2019) *IMPRESSION: 1. No area of signal abnormality, contrast enhancement or impingement is seen involving the thoracic spinal cord. 2. Degenerative changes are seen throughout the thoracic spine. These findings do not result in significant central spinal canal or neural foraminal stenosis. 3. The changes of degenerative disc disease are seen involving the mid and lower lumbar spine. These findings result in mild to moderate central spinal canal stenosis at L4-5 and mild central spinal canal stenosis at L5-S1. Mild to moderate right neural foraminal stenosis is seen at L5-S1. Thoracic MRI (03/01/2019) *IMPRESSION: 1. No area of signal abnormality, contrast enhancement or impingement is seen involving the thoracic spinal cord. 2. Degenerative changes are seen throughout the thoracic spine. These findings do not result in significant central spinal canal or neural foraminal stenosis. 3. The changes of degenerative disc disease are seen involving the mid and lower lumbar spine. These findings result in mild to moderate central spinal canal stenosis at L4-5 and mild central spinal canal stenosis at L5-S1. Mild to moderate right neural foraminal stenosis is seen at L5-S1. Assessment: back pain sciatica left numbness bilateral legs with new saddle anesthesia, STAT MRI done today, shows some narrowing, none critical CKD 2-3, Plan: 1) IVF 2) Await recommendations from neurology, neurosurgery, and PMNR 3) Cardiac monitoring 4) Continue muscle relaxers 5) Consider steroids if agreeable by neurosurgery 6) PT/OT 7) DVT prophylaxis Comment Review of Relevant I have reviewed the following items shilpa (where applicable) has been applied. Medications: Current Medications Medications (Trade) Dose Ordered Sig/Jeremiah Route PRN Reason Start Time Stop Time Status Last Admin Dose Admin Gadoterate Meglumine (Dotarem) 26.8 ml 1X ONCE IVP 03/01/19 15:45 03/01/19 15:46 DC 03/01/19 15:45 Allopurinol (Zyloprim) 300 mg DAILY PO 03/02/19 09:00 03/02/19 09:46 Potassium Citrate (Urocit-K) 10 meq BID PO 03/01/19 21:00 03/02/19 09:45 Indomethacin (Indocin) 75 mg BIDWMEALS PO 03/01/19 21:00 03/02/19 09:44 Lisinopril (Prinivil) 40 mg DAILY PO 03/02/19 09:00 03/02/19 09:45 Losartan Potassium (Cozaar) 100 mg DAILY PO 03/02/19 09:00 03/02/19 09:46 Metoprolol Succinate (Toprol Xl) 50 mg DAILY PO 03/02/19 09:00 03/02/19 09:46 Cyclobenzaprine HCl (Flexeril) 10 mg BID PO 03/01/19 21:00 03/01/19 21:45 Lidocaine (Lidoderm) 1 patch DAILY TD 03/01/19 22:45 03/01/19 22:47 Sodium Chloride 1,000 ml @ 100 mls/hr 1X ONCE IV 03/01/19 22:45 03/02/19 08:44 DC 03/01/19 22:48 KRISTINE ARITA III DO Mar 02, 2019 13:50
[2019-03-02] MEDS: IV NORMAL SALINE 1000ML BAG 1,000 ML IV SCH (14:58)
[2019-03-02 15:00] VITALS: BP 114/72
--- NOTE | 2019-03-02 15:59 | PDOC2 ---
NEUROLOGY CONSULT Date of Admission Date of Admission DATE: 03/02/19 TIME: 15:43 Reason for Consult Reason for Consult: IMPRESSION: Numbness and tingling below waist. Pain in LE, left LE > R. Back pain. HTN. L4-5 stenosis. Obesity. No evidence of acute myelitis this time. No objective sensory deficits level found on exam. RECOMMENDATIONS/PLAN: Neurontin 100 mg tid. Lab: see orders. Weight reduction. OT/PT. Consulted NS. T-spine MRI w/o acute findings. L-spine MRI: L4-5 stenosis but no nerve impingements. History of Present Illness This is a 53-year-old AA male patient who was admitted with complaints of leg and groin and LE numbness and tingling for about a week. He stated he had chronic lower back pain and left leg pain and he was thought to have sciatica. He stated then he had pain, numbness and tingling, and heaviness in his bilateral LE recently. No symptoms of urinary or bowel dysfunction. No symptoms of gait problems. His UE and cranial nerves are not affected. Past Medical History Cardiovascular: HTN Obesity. Kidney stone. PAST SURGERY HISTORY: RENAL STENTS,CYSTOSCOPY. Allergies Coded Allergies: Cortisone (Verified Allergy, Unknown, 05/23/18) MEDICATIONS: Refer to [facility] FAMILY HISTORY: Non contributory. SOCIAL HISTORY: Lives at home. Denies smoking, drinking, and illicit drug use. REVIEW OF SYSTEMS: Constitutional: Obese. Head: No recent traumatic brain or head injury. Skin: No edema, or rash. Ear: No infection. Eyes: No vision loss or color blindness. Nose: No bleeding or purulent discharges. Hearing: No hearing decrease. Neck: No injury. Cardiac: HTN. Pulmonary: No SOB. GI: No GI ulcer, GI bleeding. Urinary/genital: No dysuria, incontinence, urinary retention. Endocrinologic: obesity. Skeletomuscular: No muscular atrophy, deformity. Neurological: see HP. Psychiatric: Denies drug use/abuse. Otherwise, not [id number] review of systems. PHYSICAL EXAMINATION: General appearance is alert. HEENT: Normocephalic and nontraumatic. Eyes, nose, ears, and throat are unremarkable. Neck is supple. No lymphadenopathy. No bruits are heard over the carotid artery. No crepitus. Cardiovascular: S1, S2, regular rate and rhythm. Pulmonary: Clear to auscultation bilaterally. Abdomen: Bowel sounds are positive. Abdomen is soft, nontender, and nondistended. Extremities: No rash, lesions, or edema. No restriction of range of motion NEUROLOGICAL EXAMINATION: Alert Oriented to time, place and person. PERRL. EOMI. CN: no focal findings. Muscle tone: within normal. Muscle strength: 5 DTR: 2+, no decreased DTR in knees. Plantar reflex: Flexor response bilaterally Gait: At baseline normal. Sensory exam: no abnormal findings. No cerebellar signs elicited. F-T-N test accurate. Current Medications Current Medications Current Medications Gadoterate Meglumine (Dotarem) 26.8 ml 1X ONCE IVP Last administered on 03/01/19 15:45; Start 03/01/19 at 15:45; Stop 03/01/19 at 15:46; Status DC Ondansetron HCl (Zofran) 4 mg PRN Q8HRS PRN IV NAUSEA/VOMITING; Start 03/01/19 at 17:15; Stop 03/02/19 at 17:14 Morphine Sulfate (Morphine Sulfate) 4 mg PRN Q2HR PRN IV PAIN; Start 03/01/19 at 17:15; Stop 03/02/19 at 17:14 Allopurinol (Zyloprim) 300 mg DAILY PO Last administered on 03/02/19 09:46; Start 03/02/19 at 09:00 Acetaminophen/ Hydrocodone Bitart (Lortab 5/325) 1 tab PRN Q6HRS PRN PO PAIN; Start 03/01/19 at 20:30 Potassium Citrate (Urocit-K) 10 meq BID PO Last administered on 03/02/19 09:45; Start 03/01/19 at 21:00 Ibuprofen (Motrin) 600 mg PRN Q6HRS PRN PO INFLAMMATION; Start 03/01/19 at 20:45 Indomethacin (Indocin) 75 mg BIDWMEALS PO Last administered on 03/02/19 09:44; Start 03/01/19 at 21:00 Lisinopril (Prinivil) 40 mg DAILY PO Last administered on 03/02/19 09:45; Start 03/02/19 at 09:00 Losartan Potassium (Cozaar) 100 mg DAILY PO Last administered on 11/5/19at 09:46; Start 03/02/19 at 09:00 Metoprolol Succinate (Toprol Xl) 50 mg DAILY PO Last administered on 03/02/19at 09:46; Start 03/02/19 at 09:00 Cyclobenzaprine HCl (Flexeril) 10 mg BID PO Last administered on 03/01/19at 21:45; Start 03/01/19 at 21:00 Lidocaine (Lidoderm) 1 patch DAILY TD Last administered on 03/01/19at 22:47; Start 03/01/19 at 22:45 Miscellaneous (Lidoderm Patch Removal) 1 ea QHS MC ; Start 03/02/19 at 21:00 Sodium Chloride 1,000 ml @ 100 mls/hr 1X ONCE IV Last administered on 03/01/19at 22:48; Start 03/01/19 at 22:45; Stop 03/02/19 at 08:44; Status DC Sodium Chloride 1,000 ml @ 75 mls/hr [id number] IV Last administered on 03/02/19at 14:58; Start 03/02/19 at 13:45 Active Scripts Active Orphenadrine Citrate 100 Mg Tablet.er 1 Tab PO BID Ibuprofen 600 Mg Tablet 600 Mg PO PRN Q6HRS PRN [place] 5-325 Tablet (Acetaminophen/Hydrocodone Bitart) 1 Each Tablet 1 Tab PO PRN Q6HRS PRN Reported Toprol Xl (Metoprolol Succinate) 50 Mg Tab.er.24h 50 Mg PO DAILY Losartan Potassium 100 Mg Tablet 100 Mg PO DAILY Indomethacin 75 Mg Capsule.er 75 Mg PO BID Allopurinol 300 Mg Tablet 300 Mg PO DAILY Lisinopril 40 Mg Tablet 40 Mg PO DAILY Metformin Hcl Er (Metformin Hcl) 500 Mg Tab.er.24h 500 Mg PO BIDAC Potassium Citrate 10 Meq Tablet.er 10 Meq PO BID Allergies Allergies: Allergies Coded Allergies Type Severity Reaction Last Updated Verified cortisone Allergy Unknown 05/23/18 Yes ROS Review of System The patient denies any associated fevers, chills, headache, ear pain, rhinorrhea, sore throat, stiff neck, productive cough, chest pain, shortness of breath, back or flank pain, abdominal pain, nausea, vomiting, diarrhea, constipation, dysuria, rash, numbness, weakness, tingling, incontinence, difficulty ambulating, or diaphoresis. Physical Exam Physical Exam General: Well developed, well nourished, no acute distress, well appearing HEENT: Pupils equally round and reactive to light, EOMI, no discharge, normal conjunctiva Neck: Supple, no nuchal rigidity, no JVD, trachea midline, no tenderness Cardiac: RRR, no murmurs, no gallops, no rubs Chest/Lungs: CTAB, no wheeze, no rhonchi, no crackles Abdomen: soft, non-distended, no guarding, no peritoneal signs, non-tender Back: No tenderness Extremities: no edema, pulses intact, non-tender,capillary refill <3 sec bilateral upper and lower extremities, Neuro: Alert and oriented x 4, no focal deficits, normal speech Vitals Vitals: Vital Signs Date Time Temp Pulse Resp B/P (MAP) Pulse Ox O2 Delivery O2 Flow Rate FiO2 03/02/19 15:00 97.8 77 18 114/72 (86) 94 Room Air 97.8 Labs Labs Laboratory Tests Test 03/01/19 13:24 03/01/19 14:39 03/02/19 11:30 White Blood Count 8.6 x10^3/uL (4.0-11.0) Red Blood Count 4.93 x10^6/uL (4.30-5.70) Hemoglobin 13.7 g/dL (13.0-17.5) Hematocrit 41.8 % (39.0-53.0) Mean Corpuscular Volume 85 fL (79-100) Mean Corpuscular Hemoglobin 28 pg (25-35) Mean Corpuscular Hemoglobin Concent 33 g/dL (31-37) Red Cell Distribution Width 14.1 % (11.5-14.5) Platelet Count 317 x10^3/uL (140-400) Neutrophils (%) (Auto) 69 % (31-73) Lymphocytes (%) (Auto) 22 % (24-48) Monocytes (%) (Auto) 7 % (0-9) Eosinophils (%) (Auto) 1 % (0-3) Basophils (%) (Auto) 1 % (0-3) Neutrophils # (Auto) 6.0 x10^3/uL (1.8-7.7) Lymphocytes # (Auto) 1.9 x10^3/uL (1.0-4.8) Monocytes # (Auto) 0.6 x10^3/uL (0.0-1.1) Eosinophils # (Auto) 0.1 x10^3/uL (0.0-0.7) Basophils # (Auto) 0.1 x10^3/uL (0.0-0.2) Erythrocyte Sedimentation Rate 29 (0-15) Sodium Level 142 mmol/L (136-145) Potassium Level 4.6 mmol/L (3.5-5.1) Chloride Level 107 mmol/L (98-107) Carbon Dioxide Level 24 mmol/L (21-32) Anion Gap 11 (6-14) Blood Urea Nitrogen 30 mg/dL (8-26) Creatinine 1.5 mg/dL (0.7-1.3) Estimated GFR (Cockcroft-Gault) 59.7 BUN/Creatinine Ratio 20 (6-20) Glucose Level 93 mg/dL (70-99) Calcium Level 9.4 mg/dL (8.5-10.1) Total Bilirubin 0.4 mg/dL (0.2-1.0) Aspartate Amino Transf (AST/SGOT) 36 U/L (15-37) Alanine Aminotransferase (ALT/SGPT) 43 U/L (16-63) Alkaline Phosphatase 76 U/L (46-116) Total Protein 8.1 g/dL (6.4-8.2) Albumin 3.7 g/dL (3.4-5.0) Albumin/Globulin Ratio 0.8 (1.0-1.7) Urine Color Yellow Urine Clarity Clear Urine pH 5.5 Urine Specific [place] 1.025 Urine Protein Negative mg/dL (NEG-TRACE) Urine Glucose (UA) Negative mg/dL (NEG) Urine Ketones (Stick) Negative mg/dL (NEG) Urine Blood Negative (NEG) Urine Nitrite Negative (NEG) Urine Bilirubin Negative (NEG) Urine Urobilinogen Dipstick 0.2 mg/dL (0.2 mg/dL) Urine Leukocyte Esterase Small (NEG) Urine RBC 0 /HPF (0-2) Urine WBC 5-10 /HPF (0-4) Urine Squamous Epithelial Cells Occ /LPF Urine Bacteria 0 /HPF (0-FEW) Urine Mucus Mod /LPF Creatine Kinase 355 U/L (39-308) Vitamin B12 Level 896 pg/mL (247-911) Thyroid Stimulating Hormone (TSH) 2.277 uIU/mL (0.358-3.74) Laboratory Tests Test 03/02/19 11:30 Creatine Kinase 355 U/L (39-308) Vitamin B12 Level 896 pg/mL (247-911) Thyroid Stimulating Hormone (TSH) 2.277 uIU/mL (0.358-3.74) NINI MARTÍNEZ MD Mar 02, 2019 15:59
[2019-03-02] MEDS: methylPREDNISolone 4 MG TABLET. PO SCH ×4 (17:44→20:56)
[2019-03-02] MEDS: GABAPENTIN 100 MG CAPSULE. PO SCH ×2 (17:45→20:55)
[2019-03-02] MEDS: PANTOPRAZOLE 40 MG TABLET.DR. PO SCH (17:45)
[2019-03-02 19:35] VITALS: BP 120/67
[2019-03-02] MEDS ORDERED: PATCH REMOVAL. MC SCH (21:00)
[2019-03-02 22:01] VITALS: BP 116/61
[2019-03-03] MEDS: CYCLOBENZAPRINE 10 MG TABLET. PO SCH ×3 (00:11→12:15)
--- NOTE | 2019-03-03 02:39 | CONS ---
DATE OF CONSULTATION: 03/02/2019 ATTENDING PHYSICIAN: Aileen Matthews MD REASON FOR CONSULTATION: The patient was seen at the request of Dr. Matthews for rehab evaluation. 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 The patient is having lower back pain with radiation to his left lower extremity going on for about a month or so without any specific injury, without any problem with bowel or bladder control. He has seen Dr. Lyn Turner, his family physician, and has been taking indomethacin as an anti-inflammatory medication and Flexeril for muscle spasm and has been attending to physical therapy and also taking gabapentin. The patient started having right lower extremity kind of pain since he had been attending to physical therapy. The patient was admitted on 03/02/2019. He had an MRI scan of the thoracic and lumbar spine, which revealed degenerative changes are seen throughout the thoracic spine that does not result in any significant central spinal or neural foraminal stenosis, also degenerative disk disease are seen involving the mid and lower lumbar spine findings resulting in [id number] central canal stenosis at L4-L5, mild central canal stenosis at L5-S1, [id number] right neural foraminal stenosis is seen at L5-S1 level. The patient was also found with renal insufficiency with creatinine being 1.5. The patient is with known hypertension under control with medication and also obesity, history of kidney stone, status post renal stent and cystoscopy. The patient was noted having severe pain after intramuscular cortisone injection long time ago. It was recorded as an allergy, but he denies any history of any rash or any trouble with breathing at the time. PHYSICAL EXAMINATION: Physical examination today revealed a middle-aged male. He is alert, oriented to time, place, person and circumstance and follows commands appropriately, moves all 4 extremities voluntarily where he had 4+/5 grade muscle strength. He had equal perception of touch and pinprick sensation bilaterally. Deep tendon reflexes are 1-2+ and symmetrical with absent left ankle jerk. The patient had tenderness to palpation over lower thoracic and lumbar paraspinal muscles with moderate degree of paraspinal muscle spasm. Straight leg raising test is negative bilaterally. He had painful range of motion of both hip, knee and ankle joints. His skin is intact at this time. He is independent with bed mobility and transfers and up walking without any loss of balance. ASSESSMENT: Degenerative disc disease and degenerative joint disease of lumbar vertebrae with lumbar radiculitis, left more than right side, hypertension, renal insufficiency, obesity. RECOMMENDATION: To start him on steroid dosepak, to stop Indocin to let him continue taking hydrocodone for pain, increase dose of Flexeril to every 6 hours. I have reviewed with him a home program of physical modalities, trigger point massage and relax stretching exercise to his back muscles and proper body mechanics. Home when medically stable with outpatient followup. Dr. Matthews, I appreciate asking me to participate in the care of this interesting patient. I will be glad to see him for followup on as needed basis. OZZIE FARRELL MD DR: CLARISA/mimi JOB#: [id number] / [id number] LYN Driver DO
[2019-03-03 03:27] VITALS: BP 92/60
[2019-03-03] MEDS: IV NORMAL SALINE 1000ML BAG 1,000 ML IV SCH (04:35)
[2019-03-03 05:45] LABS: BASO % 0 % (0-3); EOS % 0 % (0-3); HEMOGLOBIN 12.8 g/dL (13.0-17.5); LYMPH # 0.9 x10^3/uL (1.0-4.8); LYMPH % 10 % (24-48); MEAN CORPUSCULAR HEMOGLOBIN 28 pg (25-35); MEAN CORPUSCULAR HGB CONC 33 g/dL (31-37); MEAN CORPUSCULAR VOLUME 85 fL (79-100); MONO # 0.3 x10^3/uL (0.0-1.1); MONO % 3 % (0-9); NEUT # 8.4 x10^3/uL (1.8-7.7); NEUT % 87 % (31-73); PLATELET COUNT 305 x10^3/uL (140-400); RED BLOOD COUNT 4.59 x10^6/uL (4.30-5.70); WHITE BLOOD COUNT 9.6 x10^3/uL (4.0-11.0)
[2019-03-03 06:14] LABS: ALBUMIN 3.3 g/dL (3.4-5.0); ALBUMIN/GLOBULIN RATIO 0.8 (1.0-1.7); CALCIUM 8.7 mg/dL (8.5-10.1); CREATININE 1.7 mg/dL (0.7-1.3); GFR 51.7; POTASSIUM 4.9 mmol/L (3.5-5.1); TOTAL BILIRUBIN 0.3 mg/dL (0.2-1.0); TOTAL PROTEIN 7.5 g/dL (6.4-8.2)
[2019-03-03 07:28] VITALS: BP 131/76
[2019-03-03] MEDS ORDERED: methylPREDNISolone 4 MG TABLET. PO SCH ×3 (08:30→21:00)
[2019-03-03 08:44] LABS: % BANDS 5 % (0-9); % BASOS 1 % (0-3); % EOS 1 % (0-5); % LYMPHS 7 % (24-48); % MONOS 2 % (0-10)
[2019-03-03 08:45] LABS: % SEGS 84 % (35-66)
[2019-03-03 08:46] LABS: PLT ESTIMATE ADEQUATE (ADEQUATE)
[2019-03-03] MEDS: LIDOCAINE (700MG/PATCH) PATCH. TD SCH (09:00)
[2019-03-03] MEDS: GABAPENTIN 100 MG CAPSULE. PO SCH (09:17)
[2019-03-03] MEDS: PANTOPRAZOLE 40 MG TABLET.DR. PO SCH (09:17)
[2019-03-03] MEDS: ALLOPURINOL 300 MG TABLET. PO SCH (09:17)
[2019-03-03] MEDS: LOSARTAN POTASSIUM 50 MG TABLET. PO SCH (09:18)
[2019-03-03] MEDS: POTASSIUM CITRATE 10 MEQ TABLET.ER PO SCH (09:18)
[2019-03-03] MEDS: methylPREDNISolone 4 MG TABLET. PO SCH ×2 (09:19→12:15)
[2019-03-03] MEDS: METOPROLOL SUCC 24HR ER 50 MG TAB.ER.24H. PO SCH (09:19)
[2019-03-03] MEDS: LISINOPRIL 20 MG TABLET PO SCH (09:19)
[2019-03-03 11:09] VITALS: BP 146/83
--- NOTE | 2019-03-03 12:56 | PDOC ---
PROGRESS NOTES Subjective Subjective He admits continued low back pain numbness in his lower extremities. Objective Objective Vital Signs Date Time Temp Pulse Resp B/P (MAP) Pulse Ox O2 Delivery O2 Flow Rate FiO2 03/03/19 11:09 97.6 76 18 146/83 (104) 97 Room Air 97.6 Intake and Output 03/03/19 07:00 Intake Total 1120 ml Balance 1120 ml Intake Oral 1120 ml # Voids 6 Physical Exam Physical Exam H eis independent with mobility and he continues with tenderness to palaption over lumbar paraspinal muscles and sacroiliac joints with painfully limited lumbar spine ROM. His creatinine is 1.7 today. 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 Assessment Assessment Problems Medical Problems: (1) Back pain Status: Acute (2) CKD (chronic kidney disease) Status: Chronic (3) Numbness in both legs Status: Acute (4) Paresthesia of both lower extremities Status: Acute (5) Paresthesia of buttock Status: Acute (6) Sciatica, left side Status: Acute Plan Plan of Care He was advised to continue his present medicine and home exercises and to consider trigger point injections or lumbar epidural steroid injections if pain persists. Comment Review of Relevant I have reviewed the following items shilpa (where applicable) has been applied. Labs Laboratory Tests Test 03/01/19 13:24 03/01/19 14:39 03/02/19 11:30 03/03/19 04:45 White Blood Count 8.6 x10^3/uL (4.0-11.0) 9.6 x10^3/uL (4.0-11.0) Red Blood Count 4.93 x10^6/uL (4.30-5.70) 4.59 x10^6/uL (4.30-5.70) Hemoglobin 13.7 g/dL (13.0-17.5) 12.8 g/dL (13.0-17.5) Hematocrit 41.8 % (39.0-53.0) 39.0 % (39.0-53.0) Mean Corpuscular Volume 85 fL (79-100) 85 fL (79-100) Mean Corpuscular Hemoglobin 28 pg (25-35) 28 pg (25-35) Mean Corpuscular Hemoglobin Concent 33 g/dL (31-37) 33 g/dL (31-37) Red Cell Distribution Width 14.1 % (11.5-14.5) 14.0 % (11.5-14.5) Platelet Count 317 x10^3/uL (140-400) 305 x10^3/uL (140-400) Neutrophils (%) (Auto) 69 % (31-73) 87 % (31-73) Lymphocytes (%) (Auto) 22 % (24-48) 10 % (24-48) Monocytes (%) (Auto) 7 % (0-9) 3 % (0-9) Eosinophils (%) (Auto) 1 % (0-3) 0 % (0-3) Basophils (%) (Auto) 1 % (0-3) 0 % (0-3) Neutrophils # (Auto) 6.0 x10^3/uL (1.8-7.7) 8.4 x10^3/uL (1.8-7.7) Lymphocytes # (Auto) 1.9 x10^3/uL (1.0-4.8) 0.9 x10^3/uL (1.0-4.8) Monocytes # (Auto) 0.6 x10^3/uL (0.0-1.1) 0.3 x10^3/uL (0.0-1.1) Eosinophils # (Auto) 0.1 x10^3/uL (0.0-0.7) 0.0 x10^3/uL (0.0-0.7) Basophils # (Auto) 0.1 x10^3/uL (0.0-0.2) 0.0 x10^3/uL (0.0-0.2) Erythrocyte Sedimentation Rate 29 (0-15) Sodium Level 142 mmol/L (136-145) 139 mmol/L (136-145) Potassium Level 4.6 mmol/L (3.5-5.1) 4.9 mmol/L (3.5-5.1) Chloride Level 107 mmol/L (98-107) 106 mmol/L (98-107) Carbon Dioxide Level 24 mmol/L (21-32) 26 mmol/L (21-32) Anion Gap 11 (6-14) 7 (6-14) Blood Urea Nitrogen 30 mg/dL (8-26) 28 mg/dL (8-26) Creatinine 1.5 mg/dL (0.7-1.3) 1.7 mg/dL (0.7-1.3) Estimated GFR (Cockcroft-Gault) 59.7 51.7 BUN/Creatinine Ratio 20 (6-20) 16 (6-20) Glucose Level 93 mg/dL (70-99) 139 mg/dL (70-99) Calcium Level 9.4 mg/dL (8.5-10.1) 8.7 mg/dL (8.5-10.1) Total Bilirubin 0.4 mg/dL (0.2-1.0) 0.3 mg/dL (0.2-1.0) Aspartate Amino Transf (AST/SGOT) 36 U/L (15-37) 27 U/L (15-37) Alanine Aminotransferase (ALT/SGPT) 43 U/L (16-63) 37 U/L (16-63) Alkaline Phosphatase 76 U/L (46-116) 79 U/L (46-116) Total Protein 8.1 g/dL (6.4-8.2) 7.5 g/dL (6.4-8.2) Albumin 3.7 g/dL (3.4-5.0) 3.3 g/dL (3.4-5.0) Albumin/Globulin Ratio 0.8 (1.0-1.7) 0.8 (1.0-1.7) Urine Color Yellow Urine Clarity Clear Urine pH 5.5 Urine Specific [place] 1.025 Urine Protein Negative mg/dL (NEG-TRACE) Urine Glucose (UA) Negative mg/dL (NEG) Urine Ketones (Stick) Negative mg/dL (NEG) Urine Blood Negative (NEG) Urine Nitrite Negative (NEG) Urine Bilirubin Negative (NEG) Urine Urobilinogen Dipstick 0.2 mg/dL (0.2 mg/dL) Urine Leukocyte Esterase Small (NEG) Urine RBC 0 /HPF (0-2) Urine WBC 5-10 /HPF (0-4) Urine Squamous Epithelial Cells Occ /LPF Urine Bacteria 0 /HPF (0-FEW) Urine Mucus Mod /LPF Creatine Kinase 355 U/L (39-308) Vitamin B12 Level 896 pg/mL (247-911) Thyroid Stimulating Hormone (TSH) 2.277 uIU/mL (0.358-3.74) Segmented Neutrophils % 84 % (35-66) Band Neutrophils % 5 % (0-9) Lymphocytes % 7 % (24-48) Monocytes % 2 % (0-10) Eosinophils % 1 % (0-5) Basophils % 1 % (0-3) Platelet Estimate Adequate (ADEQUATE) Laboratory Tests Test 03/03/19 04:45 White Blood Count 9.6 x10^3/uL (4.0-11.0) Red Blood Count 4.59 x10^6/uL (4.30-5.70) Hemoglobin 12.8 g/dL (13.0-17.5) Hematocrit 39.0 % (39.0-53.0) Mean Corpuscular Volume 85 fL (79-100) Mean Corpuscular Hemoglobin 28 pg (25-35) Mean Corpuscular Hemoglobin Concent 33 g/dL (31-37) Red Cell Distribution Width 14.0 % (11.5-14.5) Platelet Count 305 x10^3/uL (140-400) Neutrophils (%) (Auto) 87 % (31-73) Lymphocytes (%) (Auto) 10 % (24-48) Monocytes (%) (Auto) 3 % (0-9) Eosinophils (%) (Auto) 0 % (0-3) Basophils (%) (Auto) 0 % (0-3) Neutrophils # (Auto) 8.4 x10^3/uL (1.8-7.7) Lymphocytes # (Auto) 0.9 x10^3/uL (1.0-4.8) Monocytes # (Auto) 0.3 x10^3/uL (0.0-1.1) Eosinophils # (Auto) 0.0 x10^3/uL (0.0-0.7) Basophils # (Auto) 0.0 x10^3/uL (0.0-0.2) Segmented Neutrophils % 84 % (35-66) Band Neutrophils % 5 % (0-9) Lymphocytes % 7 % (24-48) Monocytes % 2 % (0-10) Eosinophils % 1 % (0-5) Basophils % 1 % (0-3) Platelet Estimate Adequate (ADEQUATE) Sodium Level 139 mmol/L (136-145) Potassium Level 4.9 mmol/L (3.5-5.1) Chloride Level 106 mmol/L (98-107) Carbon Dioxide Level 26 mmol/L (21-32) Anion Gap 7 (6-14) Blood Urea Nitrogen 28 mg/dL (8-26) Creatinine 1.7 mg/dL (0.7-1.3) Estimated GFR (Cockcroft-Gault) 51.7 BUN/Creatinine Ratio 16 (6-20) Glucose Level 139 mg/dL (70-99) Calcium Level 8.7 mg/dL (8.5-10.1) Total Bilirubin 0.3 mg/dL (0.2-1.0) Aspartate Amino Transf (AST/SGOT) 27 U/L (15-37) Alanine Aminotransferase (ALT/SGPT) 37 U/L (16-63) Alkaline Phosphatase 79 U/L (46-116) Total Protein 7.5 g/dL (6.4-8.2) Albumin 3.3 g/dL (3.4-5.0) Albumin/Globulin Ratio 0.8 (1.0-1.7) Medications Current Medications Gadoterate Meglumine (Dotarem) 26.8 ml 1X ONCE IVP Last administered on 03/01/19at 15:45; Start 03/01/19 at 15:45; Stop 03/01/19 at 15:46; Status DC Ondansetron HCl (Zofran) 4 mg PRN Q8HRS PRN IV NAUSEA/VOMITING; Start 03/01/19 at 17:15; Stop 03/02/19 at 17:14; Status DC Morphine Sulfate (Morphine Sulfate) 4 mg PRN Q2HR PRN IV PAIN; Start 03/01/19 at 17:15; Stop 03/02/19 at 17:14; Status DC Allopurinol (Zyloprim) 300 mg DAILY PO Last administered on 03/03/19at 09:17; Start 03/02/19 at 09:00 Acetaminophen/ Hydrocodone Bitart (Lortab 5/325) 1 tab PRN Q6HRS PRN PO PAIN; Start 03/01/19 at 20:30 Potassium Citrate (Urocit-K) 10 meq BID PO Last administered on 03/03/19at 09:18; Start 03/01/19 at 21:00 Ibuprofen (Motrin) 600 mg PRN Q6HRS PRN PO INFLAMMATION; Start 03/01/19 at 20:45; Stop 03/02/19 at 16:59; Status DC Indomethacin (Indocin) 75 mg BIDWMEALS PO Last administered on 03/02/19 09:44; Start 03/01/19 at 21:00; Stop 03/02/19 at 16:37; Status DC Lisinopril (Prinivil) 40 mg DAILY PO Last administered on 03/03/19 09:19; S tart 03/02/19 at 09:00 Losartan Potassium (Cozaar) 100 mg DAILY PO Last administered on 03/03/19 09:18; Start 03/02/19 at 09:00 Metoprolol Succinate (Toprol Xl) 50 mg DAILY PO Last administered on 03/03/19 09:19; Start 03/02/19 at 09:00 Cyclobenzaprine HCl (Flexeril) 10 mg BID PO Last administered on 03/01/19 21:45; Start 03/01/19 at 21:00; Stop 03/02/19 at 16:51; Status DC Lidocaine (Lidoderm) 1 patch DAILY TD Last administered on 03/01/19 22:47; Start 03/01/19 at 22:45 Miscellaneous (Lidoderm Patch Removal) 1 ea QHS MC Last administered on 03/02/19 20:57; Start 03/02/19 at 21:00 Sodium Chloride 1,000 ml @ 100 mls/hr 1X ONCE IV Last administered on 03/01/19 22:48; Start 03/01/19 at 22:45; Stop 03/02/19 at 08:44; Status DC Sodium Chloride 1,000 ml @ 75 mls/hr [id number] IV Last administered on 03/03/19 04:35; Start 03/02/19 at 13:45 Gabapentin (Neurontin) 100 mg TID PO Last administered on 03/03/19 09:17; Start 03/02/19 at 16:30 Cyclobenzaprine HCl (Flexeril) 10 mg Q6HRS PO Last administered on 03/03/19 12:15; Start 03/02/19 at 18:00 Methylprednisolone (Medrol) 8 mg BID PO ; Start 03/02/19 at 09:00; Stop 03/02/19 at 21:01; Status UNV Methylprednisolone (Medrol) 4 mg BIDPCLD PO ; Start 03/02/19 at 12:30; Stop 03/02/19 at 17:31; Status UNV Methylprednisolone (Medrol) 4 mg TIDPC PO ; Start 03/03/19 at 08:30; Stop 03/03/19 at 17:31; Status UNV Methylprednisolone (Medrol) 8 mg QHS PO ; Start 03/03/19 at 21:00; Stop 03/03/19 at 21:01; Status UNV Methylprednisolone (Medrol) 4 mg QIDAFTMEAL PO ; Start 03/04/19 at 09:00; Stop 03/04/19 at 21:01; Status UNV Pantoprazole Sodium (Protonix) 40 mg DAILYAC PO Last administered on 03/03/19at 09:17; Start 03/02/19 at 17:00 Methylprednisolone (Medrol) 8 mg BID PO Last administered on 03/02/19at 20:56; Start 03/02/19 at 17:00; Stop 03/02/19 at 21:01; Status DC Methylprednisolone (Medrol) 4 mg BIDPCLD PO Last administered on 03/02/19at 17:46; Start 03/02/19 at 17:00; Stop 03/02/19 at 17:31; Status DC Methylprednisolone (Medrol) 4 mg TIDPC PO Last administered on 03/03/19at 12:15; Start 03/03/19 at 08:30; Stop 03/03/19 at 17:31 Methylprednisolone (Medrol) 8 mg QHS PO ; Start 03/03/19 at 21:00; Stop 03/03/19 at 21:01 Methylprednisolone (Medrol) 4 mg QIDAFTMEAL PO ; Start 03/04/19 at 09:00; Stop 03/04/19 at 21:01 Methylprednisolone (Medrol) 4 mg TID PO ; Start 03/05/19 at 09:00; Stop 03/05/19 at 21:01 Methylprednisolone (Medrol) 4 mg BID PO ; Start 03/06/19 at 09:00; Stop 03/06/19 at 21:01 Methylprednisolone (Medrol) 4 mg DAILY PO ; Start 03/07/19 at 09:00; Stop 03/07/19 at 09:01 Active Scripts Active Orphenadrine Citrate 100 Mg Tablet.er 1 Tab PO BID Ibuprofen 600 Mg Tablet 600 Mg PO PRN Q6HRS PRN [place] 5-325 Tablet (Acetaminophen/Hydrocodone Bitart) 1 Each Tablet 1 Tab PO PRN Q6HRS PRN Reported Toprol Xl (Metoprolol Succinate) 50 Mg Tab.er.24h 50 Mg PO DAILY Losartan Potassium 100 Mg Tablet 100 Mg PO DAILY Indomethacin 75 Mg Capsule.er 75 Mg PO BID Allopurinol 300 Mg Tablet 300 Mg PO DAILY Lisinopril 40 Mg Tablet 40 Mg PO DAILY Metformin Hcl Er (Metformin Hcl) 500 Mg Tab.er.24h 500 Mg PO BIDAC Potassium Citrate 10 Meq Tablet.er 10 Meq PO BID Vitals/I & O Vital Sign - Last 24 Hours 03/02/19 03/02/19 03/02/19 03/02/19 15:00 19:35 20:05 22:01 Temp 97.8 98.2 98.0 97.8 98.2 98.0 Pulse 77 80 87 Resp 18 16 16 B/P (MAP) 114/72 (86) 120/67 (84) 116/61 (79) Pulse Ox 94 95 96 O2 Delivery Room Air Room Air Room Air Room Air 03/03/19 03/03/19 03/03/19 03/03/19 03:27 07:28 08:00 09:18 Temp 97.7 97.7 97.7 97.7 Pulse 65 70 70 Resp 16 20 B/P (MAP) 92/60 (71) 131/76 (94) 131/76 Pulse Ox 95 97 O2 Delivery Room Air Room Air Room Air 03/03/19 03/03/19 03/03/19 09:19 09:19 11:09 Temp 97.6 97.6 Pulse 70 79 76 Resp 18 B/P (MAP) 131/76 146/83 (104) Pulse Ox 97 O2 Delivery Room Air Intake and Output 03/02/19 03/02/19 03/03/19 15:00 23:00 07:00 Intake Total 360 ml 300 ml 460 ml Balance 360 ml 300 ml 460 ml OZZIE FARRELL MD Mar 03, 2019 12:56
--- NOTE | 2019-03-03 14:24 | PDOC ---
PROGRESS NOTES Assessment Assessment Numbness and tingling in LE.. Pain in LE, left LE > R. Back pain. HTN. L4-5 stenosis. Obesity. No evidence of acute myelitis this time. No objective sensory deficits level found on exam. RECOMMENDATIONS/PLAN: Neurontin 200 mg tid. Consulted NS. Weight reduction. OT/PT. FU with Dr. Espinal in Neurology in 1-2 weeks. FU with PCP. T-spine MRI w/o acute findings. L-spine MRI: L4-5 stenosis but no nerve impingements. History of Present Illness This is a 53-year-old AA male patient who was admitted with complaints of leg and groin and LE numbness and tingling for about a week. He stated he had chronic lower back pain and left leg pain and he was thought to have sciatica. He stated then he had pain, numbness and tingling, and heaviness in his bilateral LE recently. No symptoms of urinary or bowel dysfunction. No symptoms of gait problems. His UE and cranial nerves are not affected. 03/03/19; His sensory symptoms improved. Walking is normal. No symptoms or urinary or bowel dysfunction. Past Medical History Cardiovascular: HTN Obesity. Kidney stone. PAST SURGERY HISTORY: RENAL STENTS,CYSTOSCOPY. Allergies Coded Allergies: Cortisone (Verified Allergy, Unknown, 05/23/18) MEDICATIONS: Refer to [facility] FAMILY HISTORY: Non contributory. SOCIAL HISTORY: Lives at home. Denies smoking, drinking, and illicit drug use. REVIEW OF SYSTEMS: Constitutional: Obese. Head: No recent traumatic brain or head injury. Skin: No edema, or rash. Ear: No infection. Eyes: No vision loss or color blindness. Nose: No bleeding or purulent discharges. Hearing: No hearing decrease. Neck: No injury. Cardiac: HTN. Pulmonary: No SOB. GI: No GI ulcer, GI bleeding. Urinary/genital: No dysuria, incontinence, urinary retention. Endocrinologic: obesity. Skeletomuscular: No muscular atrophy, deformity. Neurological: see HP. Psychiatric: Denies drug use/abuse. Otherwise, not -taktn review of systems. PHYSICAL EXAMINATION: General appearance is alert. HEENT: Normocephalic and nontraumatic. Eyes, nose, ears, and throat are unremarkable. Neck is supple. No lymphadenopathy. No bruits are heard over the carotid artery. No crepitus. Cardiovascular: S1, S2, regular rate and rhythm. Pulmonary: Clear to auscultation bilaterally. Abdomen: Bowel sounds are positive. Abdomen is soft, nontender, and nondistended. Extremities: No rash, lesions, or edema. No restriction of range of motion NEUROLOGICAL EXAMINATION: Alert Oriented to time, place and person. PERRL. EOMI. CN: no focal findings. Muscle tone: within normal. Muscle strength: 5 DTR: 2+, no decreased DTR in knees. Plantar reflex: Flexor response bilaterally Gait: At baseline normal. Sensory exam: no abnormal findings. No cerebellar signs elicited. F-T-N test accurate. Objective Objective Vital Signs Date Time Temp Pulse Resp B/P (MAP) Pulse Ox O2 Delivery O2 Flow Rate FiO2 03/03/19 11:09 97.6 76 18 146/83 (104) 97 Room Air 97.6 Intake and Output 03/03/19 07:00 Intake Total 1120 ml Balance 1120 ml Intake Oral 1120 ml # Voids 6 Vitals Signs Vitals VS - Last 72 Hours, by Label Date Time Temp Pulse Resp B/P (MAP) Pulse Ox O2 Delivery O2 Flow Rate FiO2 03/03/19 11:09 97.6 76 18 146/83 (104) 97 Room Air 97.6 03/03/19 09:19 79 03/03/19 09:19 70 131/76 03/03/19 09:18 70 131/76 03/03/19 08:00 Room Air 03/03/19 07:28 97.7 70 20 131/76 (94) 97 Room Air 97.7 03/03/19 03:27 97.7 65 16 92/60 (71) 95 Room Air 97.7 03/02/19 22:01 98.0 87 16 116/61 (79) 96 Room Air 98.0 03/02/19 20:05 Room Air 03/02/19 19:35 98.2 80 16 120/67 (84) 95 Room Air 98.2 03/02/19 15:00 97.8 77 18 114/72 (86) 94 Room Air 97.8 03/02/19 11:00 97.5 82 18 120/86 (97) 96 Room Air 97.5 03/02/19 09:46 79 133/70 03/02/19 09:46 79 133/70 03/02/19 09:45 79 133/70 03/02/19 08:00 Room Air 03/02/19 07:00 97.8 79 18 133/70 (91) 96 Room Air 97.8 Laboratory Laboratory Laboratory Tests Test 03/03/19 04:45 White Blood Count 9.6 x10^3/uL (4.0-11.0) Red Blood Count 4.59 x10^6/uL (4.30-5.70) Hemoglobin 12.8 g/dL (13.0-17.5) Hematocrit 39.0 % (39.0-53.0) Mean Corpuscular Volume 85 fL (79-100) Mean Corpuscular Hemoglobin 28 pg (25-35) Mean Corpuscular Hemoglobin Concent 33 g/dL (31-37) Red Cell Distribution Width 14.0 % (11.5-14.5) Platelet Count 305 x10^3/uL (140-400) Neutrophils (%) (Auto) 87 % (31-73) Lymphocytes (%) (Auto) 10 % (24-48) Monocytes (%) (Auto) 3 % (0-9) Eosinophils (%) (Auto) 0 % (0-3) Basophils (%) (Auto) 0 % (0-3) Neutrophils # (Auto) 8.4 x10^3/uL (1.8-7.7) Lymphocytes # (Auto) 0.9 x10^3/uL (1.0-4.8) Monocytes # (Auto) 0.3 x10^3/uL (0.0-1.1) Eosinophils # (Auto) 0.0 x10^3/uL (0.0-0.7) Basophils # (Auto) 0.0 x10^3/uL (0.0-0.2) Segmented Neutrophils % 84 % (35-66) Band Neutrophils % 5 % (0-9) Lymphocytes % 7 % (24-48) Monocytes % 2 % (0-10) Eosinophils % 1 % (0-5) Basophils % 1 % (0-3) Platelet Estimate Adequate (ADEQUATE) Sodium Level 139 mmol/L (136-145) Potassium Level 4.9 mmol/L (3.5-5.1) Chloride Level 106 mmol/L (98-107) Carbon Dioxide Level 26 mmol/L (21-32) Anion Gap 7 (6-14) Blood Urea Nitrogen 28 mg/dL (8-26) Creatinine 1.7 mg/dL (0.7-1.3) Estimated GFR (Cockcroft-Gault) 51.7 BUN/Creatinine Ratio 16 (6-20) Glucose Level 139 mg/dL (70-99) Calcium Level 8.7 mg/dL (8.5-10.1) Total Bilirubin 0.3 mg/dL (0.2-1.0) Aspartate Amino Transf (AST/SGOT) 27 U/L (15-37) Alanine Aminotransferase (ALT/SGPT) 37 U/L (16-63) Alkaline Phosphatase 79 U/L (46-116) Total Protein 7.5 g/dL (6.4-8.2) Albumin 3.3 g/dL (3.4-5.0) Albumin/Globulin Ratio 0.8 (1.0-1.7) Medication Medications Current Medications Cyclobenzaprine HCl (Flexeril) 10 mg Q6HRS PO Last administered on 03/03/19at 12:15; Start 03/02/19 at 18:00 Gabapentin (Neurontin) 100 mg TID PO Last administered on 03/03/19at 09:17; Start 03/02/19 at 16:30 Methylprednisolone (Medrol) 4 mg BID PO ; Start 03/06/19 at 09:00; Stop 03/06/19 at 21:01 Methylprednisolone (Medrol) 4 mg BIDPCLD PO Last administered on 03/02/19at 17:46; Start 03/02/19 at 17:00; Stop 03/02/19 at 17:31; Status DC Methylprednisolone (Medrol) 4 mg DAILY PO ; Start 03/07/19 at 09:00; Stop 03/07/19 at 09:01 Methylprednisolone (Medrol) 4 mg QIDAFTMEAL PO ; Start 03/04/19 at 09:00; Stop 03/04/19 at 21:01 Methylprednisolone (Medrol) 4 mg QIDAFTMEAL PO ; Start 03/04/19 at 09:00; Stop 03/04/19 at 21:01; Status UNV Methylprednisolone (Medrol) 4 mg TID PO ; Start 03/05/19 at 09:00; Stop 03/05/19 at 21:01 Methylprednisolone (Medrol) 4 mg TIDPC PO Last administered on 03/03/19at 12:15; Start 03/03/19 at 08:30; Stop 03/03/19 at 17:31 Methylprednisolone (Medrol) 4 mg TIDPC PO ; Start 03/03/19 at 08:30; Stop 03/03/19 at 17:31; Status UNV Methylprednisolone (Medrol) 8 mg BID PO Last administered on 03/02/19at 20:56; Start 03/02/19 at 17:00; Stop 03/02/19 at 21:01; Status DC Methylprednisolone (Medrol) 8 mg QHS PO ; Start 03/03/19 at 21:00; Stop 03/03/19 at 21:01 Methylprednisolone (Medrol) 8 mg QHS PO ; Start 03/03/19 at 21:00; Stop 03/03/19 at 21:01; Status UNV Miscellaneous (Lidoderm Patch Removal) 1 ea QHS MC Last administered on 03/02/19at 20:57; Start 03/02/19 at 21:00 Pantoprazole Sodium (Protonix) 40 mg DAILYAC PO Last administered on 03/03/19at 09:17; Start 03/02/19 at 17:00 Comment Review of Relevant I have reviewed the following items shilpa (where applicable) has been applied. NINI ESPINAL MD Mar 03, 2019 14:24
--- NOTE | 2019-03-03 14:28 | PDOC ---
[facility] PROGRESS NOTE Chief Complaint Chief Complaint back pain sciatica left numbness bilateral legs with new saddle anesthesia, STAT MRI done today, shows some narrowing, none critical CKD 2-3, History of Present Illness History of Present Illness 03/03/2019 Pt was seen and examined. Reports symptomatic improvement as compared to yesterday however he reports that he's still moving slow. No reported side effects from initiation of medrol dose pack. Pt reports that he's eager to be discharged and pursue further treatment outpatient. 03/02/2019 Pt was seen and examined. Pt reports that he is doing well today. Reports he is overflow on the cardiac floor and is here to see neurology. Reports numbness from the midthorax to the feet. Reports that he had a MRI yesterday. Denies any cardiac complaints and denies any cardiac health problems in the past. Vitals/I&O Vitals/I&O: Vital Signs Date Time Temp Pulse Resp B/P (MAP) Pulse Ox O2 Delivery O2 Flow Rate FiO2 03/03/19 11:09 97.6 76 18 146/83 (104) 97 Room Air 97.6 I & O 03/02/19 03/02/19 03/03/19 15:00 23:00 07:00 Intake Total 360 ml 300 ml 460 ml Balance 360 ml 300 ml 460 ml Physical Exam General: Alert, Oriented X3, Cooperative, No acute distress Heart: Regular rate Lungs: Clear Abdomen: Normal bowel sounds, Soft Extremities: No clubbing, No edema, Normal pulses Skin: No rashes, No breakdown Labs Labs: Laboratory Tests Test 03/03/19 04:45 White Blood Count 9.6 x10^3/uL (4.0-11.0) Red Blood Count 4.59 x10^6/uL (4.30-5.70) Hemoglobin 12.8 g/dL (13.0-17.5) Hematocrit 39.0 % (39.0-53.0) Mean Corpuscular Volume 85 fL (79-100) Mean Corpuscular Hemoglobin 28 pg (25-35) Mean Corpuscular Hemoglobin Concent 33 g/dL (31-37) Red Cell Distribution Width 14.0 % (11.5-14.5) Platelet Count 305 x10^3/uL (140-400) Neutrophils (%) (Auto) 87 % (31-73) Lymphocytes (%) (Auto) 10 % (24-48) Monocytes (%) (Auto) 3 % (0-9) Eosinophils (%) (Auto) 0 % (0-3) Basophils (%) (Auto) 0 % (0-3) Neutrophils # (Auto) 8.4 x10^3/uL (1.8-7.7) Lymphocytes # (Auto) 0.9 x10^3/uL (1.0-4.8) Monocytes # (Auto) 0.3 x10^3/uL (0.0-1.1) Eosinophils # (Auto) 0.0 x10^3/uL (0.0-0.7) Basophils # (Auto) 0.0 x10^3/uL (0.0-0.2) Segmented Neutrophils % 84 % (35-66) Band Neutrophils % 5 % (0-9) Lymphocytes % 7 % (24-48) Monocytes % 2 % (0-10) Eosinophils % 1 % (0-5) Basophils % 1 % (0-3) Platelet Estimate Adequate (ADEQUATE) Sodium Level 139 mmol/L (136-145) Potassium Level 4.9 mmol/L (3.5-5.1) Chloride Level 106 mmol/L (98-107) Carbon Dioxide Level 26 mmol/L (21-32) Anion Gap 7 (6-14) Blood Urea Nitrogen 28 mg/dL (8-26) Creatinine 1.7 mg/dL (0.7-1.3) Estimated GFR (Cockcroft-Gault) 51.7 BUN/Creatinine Ratio 16 (6-20) Glucose Level 139 mg/dL (70-99) Calcium Level 8.7 mg/dL (8.5-10.1) Total Bilirubin 0.3 mg/dL (0.2-1.0) Aspartate Amino Transf (AST/SGOT) 27 U/L (15-37) Alanine Aminotransferase (ALT/SGPT) 37 U/L (16-63) Alkaline Phosphatase 79 U/L (46-116) Total Protein 7.5 g/dL (6.4-8.2) Albumin 3.3 g/dL (3.4-5.0) Albumin/Globulin Ratio 0.8 (1.0-1.7) Review of Systems Review of Systems: Denies CP Denies SOB Denies N/V/D Admits back pain with some numbness down to his legs Assessment and Plan Assessmemt and Plan Problems Medical Problems: (1) Back pain Status: Acute (2) CKD (chronic kidney disease) Status: Chronic (3) Numbness in both legs Status: Acute (4) Paresthesia of both lower extremities Status: Acute (5) Paresthesia of buttock Status: Acute (6) Sciatica, left side Status: Acute back pain sciatica left numbness bilateral legs with new saddle anesthesia, STAT MRI done today, shows some narrowing, none critical CKD 2-3, Plan: 1) Plan to D/C the patient today 2) Wrote a prescription for medrol dose pack for patient and lortab 5mg 3) Advised patient continue to pursue PT on an outpatient basis 4) Full code 5) DVT prophylaxis Comment Review of Relevant I have reviewed the following items shilpa (where applicable) has been applied. Medications: Current Medications Medications (Trade) Dose Ordered Sig/Jeremiah Route PRN Reason Start Time Stop Time Status Last Admin Dose Admin Miscellaneous (Lidoderm Patch Removal) 1 ea QHS 03/02/19 21:00 03/02/19 20:57 Gabapentin (Neurontin) 100 mg TID PO 03/02/19 16:30 03/03/19 09:17 Cyclobenzaprine HCl (Flexeril) 10 mg Q6HRS PO 03/02/19 18:00 03/03/19 12:15 Pantoprazole Sodium (Protonix) 40 mg DAILYAC PO 03/02/19 17:00 03/03/19 09:17 Methylprednisolone (Medrol) 8 mg BID PO 03/02/19 17:00 03/02/19 21:01 DC 03/02/19 20:56 Methylprednisolone (Medrol) 4 mg BIDPCLD PO 03/02/19 17:00 03/02/19 17:31 DC 03/02/19 17:46 Methylprednisolone (Medrol) 4 mg TIDPC PO 03/03/19 08:30 03/03/19 17:31 03/03/19 12:15 KRISTINE ARITA III DO Mar 03, 2019 14:28
[2019-03-03] MEDS ORDERED: PANT40TA77 PO (14:50)
[2019-03-03] MEDS ORDERED: CYCL10TA2 PO (14:50)
--- NOTE | 2019-03-03 14:50 | NUR ---
Discharge Note: CAROLYNE BOYLE [address] Discharge instructions and discharge home medications reviewed with Patient and a copy given. All questions have been answered and understanding verbalized. The following instructions and handouts were given: medication education, medrol dose pack instructions, follow up monitoring Discontinued lines and drains: IV, dressing, clean, dry and intact. Patient discharged to home with self via wheelchair
[2019-03-03] MEDS ORDERED: METH4TAB2 PO (14:54)
[2019-03-04] MEDS ORDERED: methylPREDNISolone 4 MG TABLET. PO SCH ×2 (09:00)
--- NOTE | 2019-03-04 22:38 | DS ---
DATE OF DISCHARGE: 03/03/2019 ADMISSION DIAGNOSES: Back pain and previous history of radiculopathy. DISCHARGE DIAGNOSIS: Resolving radiculopathy. CONSULTATIONS: Neurosurgery. PROCEDURES: None. HOSPITAL COURSE: The patient is a pleasant middle-aged male who has chronic radiculopathy. He has had previous back surgery. He was admitted. We consulted Neurosurgery. He did not require any neurosurgical intervention at this time. We did consult Dr. He as well. We did some physical therapy and occupational therapy. Yesterday, when we saw him and examined him, he was at his baseline. We discharged to home with some p.r.n. Lortab and a Medrol Dosepak. DISPOSITION: Home. ACTIVITY: As tolerated. DIET: Low sodium. MEDICATIONS: Please see the MRAD. TOTAL TIME: 32 minutes. KRISTINE ARITA DO DR: ALYSIA/mimi JOB#: [id number] / [id number]
[2019-03-05] MEDS ORDERED: methylPREDNISolone 4 MG TABLET. PO SCH (09:00)
[2019-03-06] MEDS ORDERED: methylPREDNISolone 4 MG TABLET. PO SCH (09:00)
[2019-03-07] MEDS ORDERED: methylPREDNISolone 4 MG TABLET. PO SCH (09:00)
== END 2019-03-03 15:41 | disposition home or self-care (01) | DRG 552 ==
LOC: ER 11:23 → 2 NORTH 17:03
PROVIDERS: ADMIT Internal Medicine; ATTEND Internal Medicine
DX: M51.16 Intervertebral disc disorders with radiculopathy, lumbar region (principal); Z68.41 Body mass index [BMI] 40.0-44.9, adult; N18.3 Chronic kidney disease, stage 3 (moderate); E66.9 Obesity, unspecified; G89.29 Other chronic pain; M19.90 Unspecified osteoarthritis, unspecified site; I12.9 Hypertensive chronic kidney disease with stage 1 through stage 4 chronic kidney disease, or unspecified chronic kidney disease; M48.061 Spinal stenosis, lumbar region without neurogenic claudication; M48.07 Spinal stenosis, lumbosacral region; Z79.899 Other long term (current) drug therapy; Z87.442 Personal history of urinary calculi
CPT/HCPCS: 36415; 72157; 72158; 80053; 81001; 82550; 82607; 84443; 85007; 85025; 85651; 87086; 96374; A9575; J7030; J7509; 99285-25; G0378

== ENCOUNTER → 2019-04-26 | Outpatient (CLI) | payer BC ==
[~2019-04-26] MED LIST changes: +ALLO300T PO; +CYCL10TA2 PO; +INDO75CA3 PO; +LISI40TA2 PO; +LOSA100T14 PO; +METF500T11 PO; +METH4TAB2 PO; +METO-269 PO; +PANT40TA77 PO; +POTA10TA17 PO
--- NOTE | 2019-04-26 16:51 | KCIC ---
EXAM: Pelvis and bilateral hips, 3 views. HISTORY: Pain. COMPARISON: None. FINDINGS: A frontal view of the pelvis and frog-leg views of both hips are obtained. There is no fracture, dislocation or subluxation. There is bilateral superior lateral acetabular subchondral sclerosis, subchondral cyst formation and marginal spurring. There is a suspected chronic fragmented spur along the left superior lateral acetabulum. There are bumps at the bilateral femoral head-neck junctions due to suspected chronic hip impingement. IMPRESSION: 1. No acute osseous finding. 2. Mild bilateral hip osteoarthritis and findings suggesting chronic bilateral hip impingement. Electronically signed by: Stephanie Charles MD (04/26/2019 4:49 PM) [facility]
== END | disposition home or self-care (01) ==
LOC: KCIC 16:05
PROVIDERS: ATTEND Physical Medicine & Rehabilitation
DX: M16.0 Bilateral primary osteoarthritis of hip (principal); M25.852 Other specified joint disorders, left hip; M25.851 Other specified joint disorders, right hip; M76.9 Unspecified enthesopathy, lower limb, excluding foot
CPT/HCPCS: 73521

== ENCOUNTER → 2019-05-25 | Outpatient (CLI) | payer BC ==
[~2019-05-25] MED LIST changes: +BUPIVACAINE MPF 0.5% 10 ML VIAL for KCIC. IM ONE; +IOHEXOL 300 MG/ML 50 ML VIAL. INT ART ONE; +LIDOCAINE 1% Multi-Dose 20 ML VIAL. ID ONE; +methylPREDNISolone ACETATE 40 MG/ML VIAL. INT ART ONE
--- NOTE | 2019-05-25 16:59 | KCIC ---
PROCEDURE Therapeutic left hip injection using fluoroscopic guidance. HISTORY Hip pain. TECHNIQUE The procedure was explained to the patient as were potential risks, including infection, bleeding or allergic reaction. All questions were answered. Informed written and verbal consent was obtained. The hip was prepped and draped in the usual sterile manner. Following administration of local anesthetic, a 22-gauge spinal needle was advanced into the hip joint without difficulty, with care taken to avoid the vascular structures. Stylet was removed and following negative aspiration, a mixture of 4 cc Omnipaque-300, 2 cc (80 mg) Depo-Medrol, 4 cc bupivacaine and 4 cc 1% lidocaine were injected without difficulty. Fluoroscopy demonstrates uniform and satisfactory distribution of the injection through the hip. The needle was removed. There was good hemostasis at the injection site. The patient left in stable condition without immediate complication. Patient was advised as to potential postprocedural complications and advised to contact their physician or the emergency room in such event. A single spot image was obtained. FLUOROSCOPY TIME: 42 seconds Electronically signed by: Krish Corea MD (05/25/2019 4:55 PM) [id number]
== END | disposition home or self-care (01) ==
LOC: KCIC 14:40
PROVIDERS: ATTEND Orthopaedic Surgery
DX: M16.12 Unilateral primary osteoarthritis, left hip (principal); N18.3 Chronic kidney disease, stage 3 (moderate); I12.9 Hypertensive chronic kidney disease with stage 1 through stage 4 chronic kidney disease, or unspecified chronic kidney disease; E66.9 Obesity, unspecified; M48.061 Spinal stenosis, lumbar region without neurogenic claudication; Z87.442 Personal history of urinary calculi; Z98.890 Other specified postprocedural states; Z79.899 Other long term (current) drug therapy; Z88.8 Allergy status to other drugs, medicaments and biological substances
CPT/HCPCS: 20610; 77002; J1030; Q9967